=== PATIENT | male | born 1965 | race Caucasian/White ===

== ENCOUNTER 2024-03-13 10:55 | Observation (INO) ==
--- NOTE | 2024-03-13 11:55 | Emergency Department Note ---
History of Present Illness General Chief complaint: Infection Stated complaint: RT LEG EDMEMA/SEEPING FLUID, PAINFUL Time Seen by Provider: 03/13/24 11:40 Source: patient, RN notes reviewed and old records reviewed (The patient had a outpatient summary visit from her recent [facility] visit that I reviewed) Mode of arrival: ambulatory Limitations: no limitations History of Present Illness This patient is 59-year-old male who comes in after having right leg redness and swelling and weepiness. It has been going on for several days. Denies any fall or trauma. He denies history of this he is on a blood thinner and takes Eliquis for A-fib. No fever. No cough or respiratory symptoms. No other joint aches. no chest pain. No shortness of breath Home Medications Medication Instructions Recorded Confirmed Type apixaban 5 mg tablet (Eliquis) 5 mg PO BID 03/13/24 03/13/24 History atorvastatin 40 mg tablet 40 mg PO DAILY 03/13/24 03/13/24 History carbamazepine 200 mg tablet 250 mg PO TID 03/13/24 03/13/24 History clonidine HCl 0.1 mg tablet 0.1 mg PO TID 03/13/24 03/13/24 History divalproex 250 mg tablet,delayed 750 mg PO BID 03/13/24 03/13/24 History release hydrochlorothiazide 12.5 mg tablet 12.5 mg PO DAILY 03/13/24 03/13/24 History hydroxyzine HCl 50 mg tablet 50 mg PO QID PRN Anxiety 03/13/24 03/13/24 History lisinopril 40 mg tablet 40 mg PO DAILY 03/13/24 03/13/24 History metoprolol succinate 25 mg 25 mg PO DAILY 03/13/24 03/13/24 History tablet,extended release 24 hr olanzapine 10 mg tablet 10 mg PO HS 03/13/24 03/13/24 History paliperidone palmitate 234 mg/1.5 234 mg IM Q4WK 03/13/24 03/13/24 History mL intramuscular syringe (Invega Sustenna) quetiapine 100 mg tablet (Seroquel) 100 mg PO Q6H PRN Agitation 03/13/24 03/13/24 History risankizumab-rzaa 150 mg/mL 150 mg subcut UD 03/13/24 03/13/24 History subcutaneous syringe (Skyrizi) trazodone 150 mg tablet 75 mg PO HS 03/13/24 03/13/24 History triamcinolone acetonide 0.1 % 1 applic topical DAILY PRN flare 03/13/24 03/13/24 History topical cream Allergies Allergy/AdvReac Type Severity Reaction Status Date / Time latex Allergy Severe Burning Unverified 03/13/24 16:36 Rash Latex, Natural Rubber Allergy Severe Burning Unverified 03/13/24 16:36 Rash tamsulosin Allergy Rash Unverified 03/13/24 16:43 warfarin AdvReac Unknown Verified 03/13/24 16:36 Past Med/Surg History Problem List (Updated 03/13/24 @ 17:41 by Obie Haddad MD) Current use of ad terminal makeup operator anticoagulation (Acute) History of traumatic brain injury Tobacco use PAF (paroxysmal atrial fibrillation) (Acute) COPD (chronic obstructive pulmonary disease) Seizure disorder Prediabetes HLD (hyperlipidemia) HTN (hypertension) (Acute) Cellulitis of right lower extremity (Acute) Social History Smoking Status: Current every day smoker Tobacco Type: Cigarettes Preferred Language: Ecuadorean Feels Safe at Home: Yes Immunizations: Past medical historyhe does have mental health issues. He also has a history of A-fib. Review of Systems A total of 10 systems reviewed and were otherwise negative Physical Exam Vital Signs Vital Signs - 24 hr 03/13/24 10:56 03/13/24 12:11 03/13/24 12:11 Temperature 36.6 C Temperature Source Temporal Artery Scan Pulse Rate 78 73 Pulse Rate [Apical] 70 Pulse Rhythm [Apical] Pulse Strength [Apical] Respiratory Rate 18 24 19 Respiratory Effort / Characteristics Respiratory Depth Respiratory Pattern Blood Pressure 135/80 Blood Pressure [Right Arm] 136/92 Blood Pressure Mean 98 Blood Pressure Mean [Right Arm] 106 Blood Pressure Position [Right Arm] Pulse Oximetry 97 97 97 Oxygen Delivery Method Room Air Room Air Sepsis Recent Fever Within 48 Hours No Sepsis New/Unexplained Change in Mental Status N/A Sepsis Action Taken by Nursing No Action Required 03/13/24 12:37 03/13/24 13:35 03/13/24 15:40 Temperature Temperature Source Pulse Rate 72 Pulse Rate [Apical] 67 72 Pulse Rhythm [Apical] Regular Pulse Strength [Apical] Normal Respiratory Rate 22 22 Respiratory Effort / Characteristics Non-Labored Spontaneous Non-Labored Spontaneous Respiratory Depth Normal Normal Respiratory Pattern Regular Blood Pressure Blood Pressure [Right Arm] 141/82 H 138/93 Blood Pressure Mean Blood Pressure Mean [Right Arm] 101 108 Blood Pressure Position [Right Arm] Sitting Pulse Oximetry 94 97 Oxygen Delivery Method Room Air Room Air Sepsis Recent Fever Within 48 Hours Sepsis New/Unexplained Change in Mental Status Sepsis Action Taken by Nursing 03/13/24 16:53 Temperature Temperature Source Pulse Rate 66 Pulse Rate [Apical] Pulse Rhythm [Apical] Pulse Strength [Apical] Respiratory Rate Respiratory Effort / Characteristics Respiratory Depth Respiratory Pattern Blood Pressure Blood Pressure [Right Arm] Blood Pressure Mean Blood Pressure Mean [Right Arm] Blood Pressure Position [Right Arm] Pulse Oximetry Oxygen Delivery Method Sepsis Recent Fever Within 48 Hours Sepsis New/Unexplained Change in Mental Status Sepsis Action Taken by Nursing General: Well developed well nourished older male who in no acute distress, breathing comfortably on room air. Normal speech HEENT: Normal cephalic atraumatic. Pupils are equal round and reactive to light. Extraocular movements are intact. Oropharynx is pink with moist mucous membranes. No swelling of the mouth lips or tongue. Neck: Supple with a midline trachea. No meningeal signs or stiffness, no JVD or bruits. No Stridor. Chest: Clear to auscultation bilaterally. No wheezes or rhonchi. No increased work of breathing. Heart: Regular rate and rhythm without murmurs or gallops. Abdomen: Soft nontender, nondistended without rebound guarding or rigidity. Extremities: His right leg is red and swollen all the way up to the knee. There is skin breakdown and clear seeping. He does have distal pulses and good capillary refill. Spine/Back. Non tender to palpation. No CVA tenderness Skin: Good turgor without rashes. Neurologic exam: Cranial nerves two through 12 are intact. Motor and sensation are intact and symmetrical throughout. Course Administered Medications Daptomycin 425 mg/ Syringe 8.5 mls @ 4.25 mls/min IV Q24H [facility]; Protocol Stop: 03/20/24 16:29 Last Admin: 03/13/24 16:37 Dose: 4.25 mls/min Documented By: [facility] Nicotine (Nicotine 21 Mg/24 Hr Tdsy) 1 patch TD QAM MELONIE Stop: 04/12/24 15:44 Last Admin: 03/13/24 16:28 Dose: 1 patch Documented By: JONATHAN Discontinued Medications Ceftriaxone Sodium (Rocephin) 2,000 mg in 50 mls @ 100 mls/hr IV NOW STA Stop: 03/13/24 12:30 Last Infusion: 03/13/24 13:07 Dose: Infused Documented By: Admin: 03/13/24 12:28 Dose: 100 mls/hr Documented By: HERLINDA Magnesium Sulfate/Dextrose (Magnesium Sulfate / D5w) 1 gm in 100 mls @ 50 mls/hr IV ONE ONE Stop: 03/13/24 14:54 Last Infusion: 03/13/24 15:26 Dose: Infused Documented By: Admin: 03/13/24 13:17 Dose: 50 mls/hr Documented By: HERLINDA Medical Decision Making Differential Diagnosis Cellulitis, sepsis, DVT, arterial compromise, electrolyte or metabolic abnormality, toxicologic or medication side effect, mental health disorder Medical Records Attestation: I reviewed the patient's medical records. Home Medications Current Medication List: was personally reviewed by me Laboratory Data Attestation: I reviewed the patient's lab results. 03/13/24 11:36 03/13/24 11:36 Lab Results 03/13/24 03/13/24 03/13/24 Range/Units 11:36 11:58 15:41 WBC 9.70 (4.8-10.8) K/ul RBC 4.06 L (4.70-6.10) M/uL Hgb 13.8 L (14.0-18.0) g/dl Hct 38.8 L (42.0-52.0) % MCV 95.6 (80.0-100.0) fL MCH 34.0 (25.0-34.0) pg MCHC 35.6 (32.0-36.0) g/dL RDW Std Deviation 48.3 H (36.4-46.3) fL RDW Coeff of Alexander 13.5 (11.5-14.5) % Plt Count 189 (130-400) K/uL MPV 10.0 (9.4-12.4) fL Immature Gran % (Auto) 2.3 % Neut % (Auto) 62.2 % Lymph % (Auto) 19.6 % Hughes % (Auto) 14.9 % Eos % (Auto) 0.4 % Baso % (Auto) 0.6 % Neut # (Auto) 6.03 (1.40-6.50) K/uL Lymph # (Auto) 1.90 (1.20-3.40) K/uL Hughes # (Auto) 1.45 H (0.11-0.59) K/uL Eos # (Auto) 0.04 (0.00-0.50) K/uL Baso # (Auto) 0.06 (0.00-0.20) K/uL Immature Gran # (Auto) 0.22 H (0.01-0.20) K/uL Sodium 137 (136-145) mmol/L Potassium 4.0 (3.5-5.1) mmol/L Chloride 97 L (98-107) mmol/L Carbon Dioxide 35 H (21-32) mmol/L Anion Gap 5 (3-11) BUN 16 (6-23) mg/dl Creatinine 0.74 (0.6-1.4) mg/dl Est Cr Clr Drug Dosing 158.5 ml/min eGFR 103.73 BUN/Creatinine Ratio 21.6 H (10-20) Glucose 103 H (70-99(Fasting)) mg/dl Lactate 1.5 (0.4-2.0) mmol/L Calcium 9.5 (8.6-10.3) mg/dl Magnesium 1.5 L (1.7-2.4) mg/dl Total Bilirubin 0.8 (0.2-1.0) mg/dl AST 16 (13-39) U/L ALT 11 (7-52) U/L Alkaline Phosphatase 75 (34-104) U/L Troponin I High Sens 4.9 (0-20) pg/ml Total Protein 6.7 (6.0-8.3) gm/dl Albumin 3.5 (3.4-5.0) gm/dl Globulin 3.2 (2.5-4.0) gm/dl Albumin/Globulin Ratio 1.1 (0.9-2) Procalcitonin 0.16 (0-0.5) ng/ml Nasal Screen MRSA (PCR) Negative (Negative) Imaging Data Attestation: I personally reviewed and interpreted this imaging study as follows: My Impression: Chest x-raycardiomegaly but no acute infiltrate, failure, pneumothorax seen Radiologist's Impression: Venous Doppler Study 03/13/24 11:50 US venous doppler LE RT HISTORY: 59 years-old Male eval for dvt acute pain and swelling of the right lower leg COMPARISON: None TECHNIQUE: Multiple real-time sonographic images of the right lower extremity deep venous structures were obtained assessing grayscale appearance, color and spectral flow. FINDINGS: Normal flow, compressibility, phasicity and augmentation. Subcutaneous edema. Likely benign right inguinal lymphadenopathy with normal central fatty hetal. These measure up to 1 cm in short axis. IMPRESSION: No sonographic evidence of deep venous thrombosis. ACT 112: Negative or not required by law. The above report was generated using voice recognition software. It may contain grammatical, syntax or spelling errors. Electronically signed by: Behzad Carl M.D. 03/13/2024 2:53 PM Chest X-Ray 03/13/24 11:51 XR chest 1V portable HISTORY: 59 years-old Male Sepsis COMPARISON: None TECHNIQUE: AP view of the chest FINDINGS: Cardiac silhouette is enlarged. Electronic device projects over the left heart border. Mild interstitial coarsening of the lung bases is likely chronic. No pneumothorax, pleural effusion or airspace consolidation. Numerous chronic left- sided rib fractures. Degenerative changes of the shoulders and spine. IMPRESSION: Cardiomegaly without acute process. ACT 112: Negative or not required by law. The above report was generated using voice recognition software. It may contain grammatical, syntax or spelling errors. Electronically signed by: Behzad Carl M.D. 03/13/2024 12:37 PM ECG Data Attestation: I personally reviewed and interpreted this ECG as follows: Indication: + weakness Rate (beats per minute): 73 Rhythm: + normal sinus ECG Intervals/blocks: + Normal QRS, + Normal QT and + Normal MT ECG Frost: + Normal ECG ST segments: + Normal ST segments ECG Findings: no PACs or no PVCs Comparison ECG Date: no prior available MDM Narrative This patient comes in as described above. His right leg is red and swollen and weepy. It appears to be consistent with cellulitis. he does not appear to have any neurovascular compromise. I did order ultrasound to make sure it is not a blood clot related. IV access was established and blood testing was obtained . He was placed on a cardiac nurse practitioner and full sepsis type workup. His inflammatory markers with white count and lactic acid were not scantly elevated. Ultrasound shows no evidence of DVT. He is magnesium was low and was given IV magnesium otherwise he has no significant electrolyte or metabolic abnormalities. EKG shows no ischemic changes. Given his extensive cellulitis, I do think he needs to be admitted/observed for IV antibiotics and further treatment and evaluation. I have discussed the case at length with the [facility] in consultation and the patient will be admitted for further inpatient treatment and evaluation Continuous cardiac monitoring: Upon my evaluation patient noted to be in normal sinus rhythm rate of 67 Impression & Plan Cellulitis of right lower extremity, PAF (paroxysmal atrial fibrillation), Current use of ad terminal makeup operator anticoagulation, HTN (hypertension) Discharge Plan Visit Data Chief Complaint: Infection Stated Complaint: RT LEG EDMEMA/SEEPING FLUID, PAINFUL ED Provider: Obie Haddad Discharge Problem: Cellulitis of right lower extremity, PAF (paroxysmal atrial fibrillation), Current use of ad terminal makeup operator anticoagulation, HTN (hypertension) Forms Stand Alone Forms: My [facility] Prescriptions Prescriptions: No Action atorvastatin 40 mg Tablet 40 mg PO DAILY Eliquis 5 mg Tablet 5 mg PO BID olanzapine 10 mg Tablet 10 mg PO HS triamcinolone acetonide 0.1 % Cream 1 applic TOPICAL DAILY PRN (Reason: flare) clonidine HCl 0.1 mg Tablet 0.1 mg PO TID divalproex 250 mg Tablet,Delayed Release (Dr/Ec) 750 mg PO BID hydroxyzine HCl 50 mg Tablet 50 mg PO QID PRN (Reason: Anxiety) carbamazepine 200 mg Tablet 250 mg PO TID trazodone 150 mg Tablet 75 mg PO HS metoprolol succinate 25 mg Tablet Extended Release 24 Hr 25 mg PO DAILY lisinopril 40 mg Tablet 40 mg PO DAILY hydrochlorothiazide 12.5 mg Tablet 12.5 mg PO DAILY Invega Sustenna 234 mg/1.5 mL Syringe 234 mg IM Q4WK Rx Instructions: Has not been filled per [facility] pharmacy Skyrizi 150 mg/mL Syringe 150 mg SUBCUT UD Rx Instructions: Q12wks quetiapine [Seroquel] 100 mg Tablet 100 mg PO Q6H PRN (Reason: Agitation) Referrals Referrals: PCP,NO [Primary Care Provider] - Discharge Problem: HTN (hypertension) Qualifiers: Hypertension type: unspecified Qualified Code(s): I10 - Essential (primary) hypertension
[2024-03-13 11:56] LABS: Basophils # (auto) 0.06 K/uL (0.00-0.20); Basophils % (auto) 0.6 %; Eosinophils # (auto) 0.04 K/uL (0.00-0.50); Eosinophils % (auto) 0.4 %; Hematocrit (blood only) 38.8 % (42.0-52.0); Hemoglobin 13.8 g/dl (14.0-18.0); Immature Granulocytes # (auto) 0.22 K/uL (0.01-0.20); Immature Granulocytes % (auto) 2.3 %; Lymphocytes % (auto) 19.6 %; Mean Corpuscular Hgb Conc 35.6 g/dL (32.0-36.0); Mean Corpuscular Volume 95.6 fL (80.0-100.0); Monocytes # (auto) 1.45 K/uL (0.11-0.59); Monocytes % (auto) 14.9 %; Neutrophils # (auto) 6.03 K/uL (1.40-6.50); Neutrophils % (auto) 62.2 %; Platelet Count 189 K/uL (130-400); RDW Coefficient of Variation 13.5 % (11.5-14.5); RDW Standard Deviation 48.3 fL (36.4-46.3); Red Blood Count 4.06 M/uL (4.70-6.10)
[2024-03-13 12:10] LABS: Albumin Globulin Ratio 1.1 (0.9-2); Albumin Level 3.5 gm/dl (3.4-5.0); BUN Creatinine Ratio 21.6 (10-20); Bilirubin,Total 0.8 mg/dl (0.2-1.0); Calcium 9.5 mg/dl (8.6-10.3); Creatinine Clr Calc Pharmacy 158.5 ml/min; Globulin 3.2 gm/dl (2.5-4.0); Total Protein 6.7 gm/dl (6.0-8.3)
[2024-03-13] MEDS: cefTRIAXone SODIUM 2,000 MG/50 ML BAG IV STA (12:28)
[2024-03-13 12:34] LABS: Magnesium 1.5 mg/dl (1.7-2.4)
[2024-03-13 12:39] LABS: Troponin I High Sensitivity 4.9 pg/ml (0-20)
--- NOTE | 2024-03-13 12:39 | XRay Report ---
XR chest 1V portable HISTORY: 59 years-old Male Sepsis COMPARISON: None TECHNIQUE: AP view of the chest FINDINGS: Cardiac silhouette is enlarged. Electronic device projects over the left heart border. Mild interstit ial coarsening of the lung bases is likely chronic. No pneumothorax, pleural effusion or airspace con solidation. Numerous chronic left-sided rib fractures. Degenerative changes of the shoulders and spin e. IMPRESSION: Cardiomegaly without acute process. ACT 112: Negative or not required by law. The above report was generated using voice recognition software. It may contain grammatical, syntax o r spelling errors. Electronically signed by: Behzad Carl M.D. 03/13/2024 12:37 PM
[2024-03-13] MEDS: MAGNESIUM SULFATE / D5W 1 GM/100 ML BAG IV ONE (13:17)
--- NOTE | 2024-03-13 14:54 | Ultrasound Report ---
US venous doppler LE RT HISTORY: 59 years-old Male eval for dvt acute pain and swelling of the right lower leg COMPARISON: None TECHNIQUE: Multiple real-time sonographic images of the right lower extremity deep venous structures were obtained assessing grayscale appearance, color and spectral flow. FINDINGS: Normal flow, compressibility, phasicity and augmentation. Subcutaneous edema. Likely benign right ing uinal lymphadenopathy with normal central fatty hetal. These measure up to 1 cm in short axis. IMPRESSION: No sonographic evidence of deep venous thrombosis. ACT 112: Negative or not required by law. The above report was generated using voice recognition software. It may contain grammatical, syntax o r spelling errors. Electronically signed by: Behzad Carl M.D. 03/13/2024 2:53 PM
[2024-03-13] MEDS ORDERED: VANCOMYCIN CONSULT ACTIVE PRN ×2 (15:55→18:19)
[2024-03-13] MEDS ORDERED: VANCOMYCIN HCL 2,750 MG in DEXTROSE 5% 500 ML IV ONE (15:55)
--- NOTE | 2024-03-13 15:55 | History & Physical Report ---
Date of Service March 13, 2024 Assessment & Plan (1) Cellulitis of right lower extremity: Plan: Patient is 59-year-old male with PMH HTN, HLD, paroxysmal atrial fibrillation anticoagulated on Eliquis, prediabetes, seizure disorder, COPD, tobacco use, hemochromatosis, history TBI, schizophrenia, schizoaffective disorder, bipolar disorder, psoriasis per records presented to ER for RLE edema and erythema x several days. Denies known injury. Reported applied skin peeling agent to bilateral arms and legs recently. In ER patient afebrile, vital stable without tachycardia, tachypnea. No leukocytosis. Normal lactate In ER given Rocephin Patient reports thinks has history of MRSA from nasal swab in past Will start cefepime and daptomycin MRSA swab pending Venous Doppler negative for DVT CBC, BMP in a.m. (2) HTN (hypertension): Plan: Stable Continue lisinopril, HCTZ Per outpatient PCP note amlodipine was discontinued secondary to LE edema (3) HLD (hyperlipidemia): Plan: Hold atorvastatin as is on daptomycin (4) Prediabetes: Plan: A1c: 5.8 on 01/02/2024 Diet controlled Random glucose: 103 Monitor a.m. glucose (5) PAF (paroxysmal atrial fibrillation): Plan: Anticoagulated on Eliquis Continue metoprolol succinate Will hold Eliquis as contraindication with carbamazepine Will need to further clarify patients history (6) COPD (chronic obstructive pulmonary disease): Plan: No signs of acute exacerbation Albuterol prn (7) Schizophrenia: Plan: Per outpatient records history paranoid schizophrenia, schizoaffective and bipolar disorder Continue carbamazepine, Depakote, olanzapine, clonidine Per records is on Invega injections, unclear if patient still taking or when last dose was (8) History of traumatic brain injury: (9) Seizure disorder: Plan: On Depakote Denies recent seizure (10) Tobacco use: Plan: Smoking cessation encouraged Nicotine patch DVT Prophylaxis On Eliquis Admit med surg Full Code as per discussion with pt Follows with Dr Beltran for routine care Pt was seen and care coordinated with Dr Hyman. See addendum I spent a total of 75 minutes reviewing notes, outpatient records, labs, medication, coordinating, documenting and providing care for this patient excluding time spent in the performance of separately billed services. History of Present Illness Chief Complaint: Right leg swelling Primary Care Provider: Dr Sergo Beltran Patient is 59-year-old male with PMH HTN, HLD, paroxysmal atrial fibrillation anticoagulated on Eliquis, prediabetes, seizure disorder, COPD, tobacco use, hemochromatosis, history TBI, schizophrenia, schizoaffective disorder, bipolar disorder, psoriasis per records presented to ER for RLE edema and erythema x several days. Patient reports is currently residing at [facility]. Reports moved to area approximately 5 months ago from [place], [place]. Patient reports chronic skin discoloration to lower legs. He reports cannot tolerate compression hose. States for the last several days noted increased swelling and redness to right lower leg which has worsened. Several days ago noticed some clear yellow fluid seeping from right lower leg. He reports history right ankle fracture approximately 12 years ago. Denies any recent injury or trauma to leg. It is unclear if patient has had any chills as when asked he "states yes somebody asked me that question already". Thinks history positive MRSA nasal swab in past. Denies known history of DVT or cellulitis however patient is poor historian. When asked patient denies history of psoriasis however per chart review psoriasis is listed as a diagnosis and appears patient has been on Skyrizi in past. Is unclear if patient is still taking this. Patient reports he put some type of "skin peeling cream" to bilateral arms and legs recently. States noted skin has been peeling. He reports has done this in the past and usually follows up treatment by applying moisturizer however he did not this time. Denies diaphoresis, N/V/D/C, HELMS, dizziness, neck pain, CP, SOB, palpitations, cough, sore throat, rhinorrhea, abdominal pain, paresthesias, extremity weakness, urinary symptoms. Allergies Allergy/AdvReac Type Severity Reaction Status Date / Time latex Allergy Severe Burning Unverified 03/13/24 16:36 Rash Latex, Natural Rubber Allergy Severe Burning Unverified 03/13/24 16:36 Rash tamsulosin Allergy Rash Unverified 03/13/24 16:43 warfarin AdvReac Unknown Verified 03/13/24 16:36 Home Medications Medication Instructions Recorded Confirmed Type apixaban 5 mg tablet (Eliquis) 5 mg PO BID 03/13/24 03/13/24 History atorvastatin 40 mg tablet 40 mg PO DAILY 03/13/24 03/13/24 History carbamazepine 200 mg tablet 250 mg PO TID 03/13/24 03/13/24 History clonidine HCl 0.1 mg tablet 0.1 mg PO TID 03/13/24 03/13/24 History divalproex 250 mg tablet,delayed 750 mg PO BID 03/13/24 03/13/24 History release hydrochlorothiazide 12.5 mg tablet 12.5 mg PO DAILY 03/13/24 03/13/24 History hydroxyzine HCl 50 mg tablet 50 mg PO QID PRN Anxiety 03/13/24 03/13/24 History lisinopril 40 mg tablet 40 mg PO DAILY 03/13/24 03/13/24 History metoprolol succinate 25 mg 25 mg PO DAILY 03/13/24 03/13/24 History tablet,extended release 24 hr olanzapine 10 mg tablet 10 mg PO HS 03/13/24 03/13/24 History paliperidone palmitate 234 mg/1.5 234 mg IM Q4WK 03/13/24 03/13/24 History mL intramuscular syringe (Invega Sustenna) quetiapine 100 mg tablet (Seroquel) 100 mg PO Q6H PRN Agitation 03/13/24 03/13/24 History risankizumab-rzaa 150 mg/mL 150 mg subcut UD 03/13/24 03/13/24 History subcutaneous syringe (Melvinayrizi) trazodone 150 mg tablet 75 mg PO HS 03/13/24 03/13/24 History triamcinolone acetonide 0.1 % 1 applic topical DAILY PRN flare 03/13/24 03/13/24 History topical cream Past Med/Surg History Problem List Current use of group home anticoagulation (Acute) History of traumatic brain injury Tobacco use PAF (paroxysmal atrial fibrillation) (Acute) COPD (chronic obstructive pulmonary disease) Seizure disorder Prediabetes HLD (hyperlipidemia) HTN (hypertension) (Acute) Cellulitis of right lower extremity (Acute) Surgical History Hx of tonsillectomy H/O foot surgery reports history Left foot fracture Family History Other Diabetes Dyslipidemia Hypertension Social History Smoking Status: Current every day smoker Tobacco Type: Cigarettes Cigarettes Per Day: 3/4 pack a day; Hx Alcohol Use: No Hx Substance Use: No Preferred Language: Lithuanian Communication Ability: Effective Soaking Room Operator Required: No Beliefs That Will Affect Care: None Current Living Situation: [facility] Feels Safe at Home: Yes Assistive Devices: None Review of Systems Review of Systems: All systems reviewed & are unremarkable except as noted in HPI & below Physical Exam Physical Exam: General: no distress, obese Head: normocephalic, atraumatic Eyes: conjunctiva non-injected, anicteric ENT: normal inspection external ears, nose, mucous membranes moist Neck: supple, trachea midline Lungs: clear, no respiratory distress, scattered wheezing, no rhonchi/rales CV: RRR, no murmur Abd: normal BS, soft, non-tender Ext: RLE: +erythema, warmth and edema to entire lower leg from just below knee to toes, +bullous regions and scattered clear/yellow seeping. Area tender to palpation. Foot is soiled. LLE + skin discoloration noted lower extremity. +erythematous scaling skin to bilateral arms and legs Neuro: A&O x 3, no focal deficits noted, tangential thoughts Skin: as above in extremities, warm, dry Results & Data Results & Data Vital Signs (Past 12 Hours) Vital Signs Temp Pulse Pulse Resp BP BP Pulse Ox 03/13/24 13:35 67 22 141/82 H 94 03/13/24 12:37 72 03/13/24 12:11 73 19 97 03/13/24 12:11 70 24 136/92 97 03/13/24 10:56 36.6 C 78 18 135/80 97 O2 Del Method 03/13/24 13:35 Room Air 03/13/24 12:37 03/13/24 12:11 Room Air 03/13/24 12:11 Room Air 03/13/24 10:56 Laboratory Results Short CBC 03/13/24 Range/Units 11:36 WBC 9.70 (4.8-10.8) K/ul Hgb 13.8 L (14.0-18.0) g/dl Hct 38.8 L (42.0-52.0) % Plt Count 189 (130-400) K/uL BMP 03/13/24 11:36 Sodium 137 Potassium 4.0 Chloride 97 L Carbon Dioxide 35 H BUN 16 Creatinine 0.74 Glucose 103 H Calcium 9.5 Liver Function 03/13/24 Range/Units 11:36 Total Bilirubin 0.8 (0.2-1.0) mg/dl AST 16 (13-39) U/L ALT 11 (7-52) U/L Alkaline Phosphatase 75 (34-104) U/L Albumin 3.5 (3.4-5.0) gm/dl Diagnostic Findings Venous Doppler Study 03/13/24 11:50 US venous doppler LE RT HISTORY: 59 years-old Male eval for dvt acute pain and swelling of the right lower leg COMPARISON: None TECHNIQUE: Multiple real-time sonographic images of the right lower extremity deep venous structures were obtained assessing grayscale appearance, color and spectral flow. FINDINGS: Normal flow, compressibility, phasicity and augmentation. Subcutaneous edema. Likely benign right inguinal lymphadenopathy with normal central fatty hetal. These measure up to 1 cm in short axis. IMPRESSION: No sonographic evidence of deep venous thrombosis. ACT 112: Negative or not required by law. The above report was generated using voice recognition software. It may contain grammatical, syntax or spelling errors. Electronically signed by: Behzad Carl M.D. 03/13/2024 2:53 PM Chest X-Ray 03/13/24 11:51 XR chest 1V portable HISTORY: 59 years-old Male Sepsis COMPARISON: None TECHNIQUE: AP view of the chest FINDINGS: Cardiac silhouette is enlarged. Electronic device projects over the left heart border. Mild interstitial coarsening of the lung bases is likely chronic. No pneumothorax, pleural effusion or airspace consolidation. Numerous chronic left- sided rib fractures. Degenerative changes of the shoulders and spine. IMPRESSION: Cardiomegaly without acute process. ACT 112: Negative or not required by law. The above report was generated using voice recognition software. It may contain grammatical, syntax or spelling errors. Electronically signed by: Behzad Carl M.D. 03/13/2024 12:37 PM Code Status & VTE Plan VTE Prophylaxis Plan VTE Prophylaxis will be ordered: Yes Supervising Physician Co-Signing Physician Notes Attending Addendum: Case reviewed with the advanced practitioner. I have personally performed a history and physical examination on the patient. I have reviewed the advanced practitioner's documentation on the date of service referenced in note, and I agree with, and take responsibility for the plan of care. please refer to her notes for full details patient seen and examined, records reviewed by myself as well on exam, patient Seen resting in bed, not in distress, watching TV Reports moderate pain over right lower extremity, worse with ambulation No other symptoms reported VS noted and reviewed: oriented X 3, not in distress, speaks in sentences with no effort nor accessory muscle use normal rate, regular rhythm, no murmurs clear breath sounds bilaterally non distended, soft, nontender no bipedal edema, erythema, warmth no neuro deficits all labs, imaging noted and reviewed ASSESSMENT AND PLAN> Right lower extremity cellulitis Doppler ultrasound: No DVT Blood cultures ordered Wound culture ordered IV Daptomycin + Cefepime other diagnoses and plan of care as per advanced practitioner's notes Jared Hyman MD (7) Schizophrenia Schizophrenia type: unspecified Qualified Code(s): F20.9 - Schizophrenia, unspecified
[2024-03-13] MEDS: NICOTINE 21 MG/24 HR TDSY TD SCH (16:28)
[2024-03-13] MEDS: DAPTOmycin 425 MG in SYRINGE 0 ML IV SCH (16:37)
[2024-03-13] MEDS ORDERED: ALBUTEROL 0.083% NEBU SOLN 3 ML VIAL NEB PRN (18:19)
[2024-03-13] MEDS ORDERED: POLYETHYLENE (MIRALAX) 17 GM PACK PO PRN (18:19)
[2024-03-13] MEDS ORDERED: VANCOMYCIN HCL 1,500 MG in DEXTROSE 5% 500 ML IV SCH (18:19)
[2024-03-13] MEDS: CEFEPIME 2000MG 2,000 MG/20 ML SYR IV SCH (20:59)
[2024-03-13] MEDS: ENOXAPARIN INJ 40 MG/0.4 ML SYR SQ SCH (20:59)
[2024-03-13] MEDS ORDERED: APIXABAN 5 MG TABLET PO SCH (21:00)
[2024-03-13] MEDS: carBAMazepine 100 MG CHEW TAB PO SCH (21:00)
[2024-03-13] MEDS: OLANZapine 10 MG TAB PO SCH (21:01)
[2024-03-13] MEDS: DIVALPROEX DELAY RELEASE 250 MG TABEC PO SCH (21:01)
[2024-03-13] MEDS: traZODone HCL 50 MG TAB PO SCH (21:02)
[2024-03-13] MEDS: cloNIDine HCL 0.1 MG TAB PO SCH (21:02)
[2024-03-14] MEDS: ACETAMINOPHEN 325 MG TAB PO PRN (01:06)
[2024-03-14 06:12] LABS: Hematocrit (blood only) 35.3 % (42.0-52.0); Hemoglobin 12.1 g/dl (14.0-18.0); Mean Corpuscular Hemoglobin 33.4 pg (25.0-34.0); Mean Corpuscular Hgb Conc 34.3 g/dL (32.0-36.0); Mean Corpuscular Volume 97.5 fL (80.0-100.0); Mean Platelet Volume 9.9 fL (9.4-12.4); Platelet Count 171 K/uL (130-400); RDW Coefficient of Variation 13.7 % (11.5-14.5); Red Blood Count 3.62 M/uL (4.70-6.10); White Blood Count 7.48 K/ul (4.8-10.8)
[2024-03-14 06:35] LABS: Calcium 8.7 mg/dl (8.6-10.3); Creatinine Clr Calc Pharmacy 143.1 ml/min; Magnesium 1.6 mg/dl (1.7-2.4); Potassium 4.5 mmol/L (3.5-5.1)
[2024-03-14] MEDS: METOPROLOL SUCC 25MG EXT REL TAB PO SCH (08:32)
[2024-03-14] MEDS: hydroCHLOROthiazide 25 MG TAB PO SCH (08:32)
[2024-03-14] MEDS: lisinopril 40 MG TAB PO SCH (08:32)
[2024-03-14] MEDS: oxyCODONE HCL IR 5 MG TAB (IMMEDIATE RELEASE) PO STA (09:35)
--- NOTE | 2024-03-14 11:02 | Hospitalist Progress Note ---
Date of Service March 14, 2024 Assessment & Plan (1) Cellulitis of right lower extremity: (2) HTN (hypertension): (3) HLD (hyperlipidemia): (4) Prediabetes: (5) PAF (paroxysmal atrial fibrillation): (6) COPD (chronic obstructive pulmonary disease): (7) History of traumatic brain injury: (8) Seizure disorder: (9) Tobacco use: Plan Mr. Guillory is 59-year-old male with PMH HTN, HLD, paroxysmal atrial fibrillation anticoagulated on Eliquis, prediabetes, seizure disorder, COPD, tobacco use, hemochromatosis, history TBI, schizophrenia, schizoaffective disorder, bipolar disorder, psoriasis per records presented to ER for RLE edema and erythema x several days. Patient has followed Dr. Sergo Beltran as OP. Has a history of TBI at age 15 and multiple psychiatric disorders including schizoaffective disorder, bipolar disorder, schizophrenia. His current medications from a psychiatric perspective include Tegretol 250 mg 3 times daily, clonidine 0.1 mg 3 times daily, Depakote 750 mg twice daily, Seroquel 100 mg as needed, Invega Sustenna 234 mg once monthly. He reports symptoms are largely stable. He does have a history of atrial fibrillation currently anticoagulated on Eliquis. Seemingly diagnosed in 2017 or 2018. #Acute Cellulitis of right lower extremity: #Stasis dermatitis of BLE In ER patient afebrile, vital stable without tachycardia, tachypnea. No leukocytosis. Normal lactate MRSA negative, doppler negative Continue additional day of IV antibiotics, while swab grows (superficial culture) AmLactin to LLE #HTN (hypertension): Stable Follows Dr. Sergo Beltran Recently increased lisinopril to 40mg daily 02/20, continue Continue HCTZ and Metoprolol XL 25mg daily #HLD (hyperlipidemia): Hold atorvastatin as is on daptomycin #Prediabetes: A1c: 5.8 on 01/02/2024 Diet controlled Random glucose: 103 stable #PAF (paroxysmal atrial fibrillation): Anticoagulated on Eliquis, has been on eliquis since 2018 after reported ?stroke/lacunar infarct after hospitalization Continue metoprolol succinate #Post traumatic epilespy #History of TBI last documented seizure reportedly 2016, no documentation or reports of other seizures Followed neurology 2021 Continue on Depakote 750mg BID for convulsions #COPD (chronic obstructive pulmonary disease): No signs of acute exacerbation Albuterol prn #Schizophrenia: Per outpatient records history paranoid schizophrenia, schizoaffective and bipolar disorder Continue carbamazepine, Depakote, olanzapine, clonidine Per records is on Invega injections, unclear if patient still taking or when last dose was #Tobacco use: Smoking cessation encouraged Nicotine patch DVT Prophylaxis On Eliquis med surg Full Code Follows with Dr Beltran for routine care Admission and Anticipated Discharge Date Admission Date: March 13, 2024 Subjective NAEO Reports some modest improvement in RLE pain/cellulitis Denies any fevers chills or other systemic symptoms Physical Exam Constitutional: WD/WN, vitals as above a little tangential and poor historian, but able to redirect and agree to plan Respiratory: normal respiratory effort, lungs clear to auscultation Cardiovascular: RRR Skin: LLE with dry skin and subtle stasis changes, RLE with erythema up to knee, small areas of blistering, pedal edema, and tenderness Results & Data Results & Data Vital Signs (Past 12 Hours) Vital Signs Temp Pulse Resp BP Pulse Ox O2 Del Method 03/14/24 09:40 Room Air 03/14/24 08:32 36.4 C L 88 17 154/90 H 95 Room Air Laboratory Results Short CBC 03/14/24 Range/Units 05:31 WBC 7.48 (4.8-10.8) K/ul Hgb 12.1 L (14.0-18.0) g/dl Hct 35.3 L (42.0-52.0) % Plt Count 171 (130-400) K/uL BMP 03/14/24 05:31 Sodium 136 Potassium 4.5 Chloride 98 Carbon Dioxide 34 H BUN 18 Creatinine 0.82 Glucose 129 H Calcium 8.7 Medications Administered Home Medications Medication Instructions Recorded Confirmed Last Taken apixaban 5 mg tablet (Eliquis) 5 mg PO BID 03/13/24 03/13/24 03/13/24 atorvastatin 40 mg tablet 40 mg PO DAILY 03/13/24 03/13/24 Unknown carbamazepine 200 mg tablet 250 mg PO TID 03/13/24 03/13/24 Unknown clonidine HCl 0.1 mg tablet 0.1 mg PO TID 03/13/24 03/13/24 Unknown divalproex 250 mg tablet,delayed 750 mg PO BID 03/13/24 03/13/24 Unknown release hydrochlorothiazide 12.5 mg tablet 12.5 mg PO DAILY 03/13/24 03/13/24 Unknown hydroxyzine HCl 50 mg tablet 50 mg PO QID PRN Anxiety 03/13/24 03/13/24 Unknown lisinopril 40 mg tablet 40 mg PO DAILY 03/13/24 03/13/24 Unknown metoprolol succinate 25 mg 25 mg PO DAILY 03/13/24 03/13/24 Unknown tablet,extended release 24 hr olanzapine 10 mg tablet 10 mg PO HS 03/13/24 03/13/24 03/12/24 paliperidone palmitate 234 mg/1.5 234 mg IM Q4WK 03/13/24 03/13/24 Unknown mL intramuscular syringe (Invega Sustenna) quetiapine 100 mg tablet (Seroquel) 100 mg PO Q6H PRN Agitation 03/13/24 03/13/24 Unknown risankizumab-rzaa 150 mg/mL 150 mg subcut UD 03/13/24 03/13/24 Unknown subcutaneous syringe (Skyrizi) trazodone 150 mg tablet 75 mg PO HS 03/13/24 03/13/24 Unknown triamcinolone acetonide 0.1 % 1 applic topical DAILY PRN flare 03/13/24 03/13/24 Unknown topical cream Active Medications Generic Name Dose Route Start Last Admin Trade Name Freq PRN Reason Stop Dose Admin Acetaminophen 650 mg 03/13/24 18:19 03/14/24 01:06 Acetaminophen 325 Mg Tab PO 04/12/24 18:18 650 mg Q4H PRN Administration pain/fever Apixaban 5 mg 03/14/24 11:00 03/14/24 11:38 Apixaban 5 Mg Tablet PO 04/13/24 10:59 5 mg BID MELONIE Administration Carbamazepine 250 mg 03/13/24 21:00 03/14/24 14:27 Carbamazepine 100 Mg Chew Tab PO 04/12/24 20:59 250 mg TID MELONIE Administration Clonidine HCl 0.1 mg 03/13/24 21:00 03/14/24 14:27 Clonidine Hcl 0.1 Mg Tab PO 04/12/24 20:59 0.1 mg TID MELONIE Administration Divalproex Sodium 750 mg 03/13/24 21:00 03/14/24 08:32 Divalproex Delay Release 250 Mg Tabec PO 04/12/24 20:59 750 mg BID MELONIE Administration Hydrochlorothiazide 12.5 mg 03/14/24 09:00 03/14/24 08:32 Hydrochlorothiazide 25 Mg Tab PO 04/13/24 08:59 12.5 mg DAILY MELONIE Administration Daptomycin 425 mg/ Syringe 8.5 mls @ 4.25 mls/min 03/13/24 16:30 03/13/24 16:37 IV 03/20/24 16:29 4.25 mls/min Q24H MELONIE Administration Protocol Cefepime HCl 2,000 mg in 20 mls @ 5 mls/min 03/13/24 19:00 03/14/24 11:30 Maxipime 2000mg IV 03/20/24 18:59 5 mls/min Q8H MELONIE Administration Protocol Lisinopril 40 mg 03/14/24 09:00 03/14/24 08:32 Lisinopril 40 Mg Tab PO 04/13/24 08:59 40 mg DAILY MELONIE Administration Magnesium Chloride 64 mg 03/14/24 11:00 03/14/24 11:38 Magnesium Chloride W/Calcium 64mg Delayed Rel Tab PO 04/13/24 10:59 64 mg QAM MELONIE Administration Metoprolol Succinate 25 mg 03/14/24 09:00 03/14/24 08:32 Metoprolol Succ 25mg Ext Rel Tab PO 04/13/24 08:59 25 mg DAILY MELONIE Administration Miscellaneous 1 each 03/14/24 08:59 03/14/24 09:03 Remove Nicoderm Patch N/A 04/13/24 08:58 Not Given [id number] MELONIE Nicotine 1 patch 03/13/24 15:45 03/14/24 09:03 Nicotine 21 Mg/24 Hr Tdsy TD 04/12/24 15:44 1 patch QAM MELONIE Administration Olanzapine 10 mg 03/13/24 21:00 03/13/24 21:01 Olanzapine 10 Mg Tab PO 04/12/24 20:59 10 mg HS MELONIE Administration Trazodone HCl 75 mg 03/13/24 21:00 03/13/24 21:02 Trazodone Hcl 50 Mg Tab PO 04/12/24 20:59 75 mg HS MELONIE Administration (2) HTN (hypertension) Hypertension type: unspecified Qualified Code(s): I10 - Essential (primary) hypertension
[2024-03-14] MEDS: MAGNESIUM CHLORIDE W/CALCIUM 64MG DELAYED REL TAB PO SCH (11:38)
[2024-03-14] MEDS: APIXABAN 5 MG TABLET PO SCH (11:38)
[2024-03-14] MEDS: COUGH DROP (SUGAR FREE) LOZ 24 LOZ/1 BOX BUCCAL ONE (16:45)
--- NOTE | 2024-03-14 19:08 | Electrocardiogram Report ---
Test Reason : Blood Pressure : */* mmHG Vent. Rate : 73 BPM Atrial Rate : 73 BPM P-R Int : 148 ms QRS Dur : 86 ms QT Int : 384 ms P-R-T Axes : 55 46 42 degrees QTcB Int : 423 ms Normal sinus rhythm Normal ECG No previous ECGs available Confirmed by Tita Patrick ([email or web address]) on 03/14/2024 7:08:26 PM Referred By: REFERRED SELF Confirmed By: Tita Patrick
[2024-03-14] MEDS: AMMONIUM LACTATE 12% LOTION 225 GM BTL EXT SCH (19:59)
[2024-03-15 07:53] LABS: Hematocrit (blood only) 37.8 % (42.0-52.0); Hemoglobin 13.1 g/dl (14.0-18.0); Mean Corpuscular Hemoglobin 32.8 pg (25.0-34.0); Mean Corpuscular Hgb Conc 34.7 g/dL (32.0-36.0); Mean Corpuscular Volume 94.5 fL (80.0-100.0); Mean Platelet Volume 9.8 fL (9.4-12.4); Platelet Count 206 K/uL (130-400); RDW Coefficient of Variation 13.3 % (11.5-14.5); RDW Standard Deviation 46.2 fL (36.4-46.3); White Blood Count 7.58 K/ul (4.8-10.8)
[2024-03-15 08:00] LABS: Anion Gap 5 (3-11); BUN Creatinine Ratio 27.1 (10-20); Blood Urea Nitrogen 19 mg/dl (6-23); Calcium 8.8 mg/dl (8.6-10.3); Carbon Dioxide 30 mmol/L (21-32); Chloride 95 mmol/L (98-107); Creatinine Clr Calc Pharmacy 167.6 ml/min; Glucose 111 mg/dl (70-99(Fasting)); Magnesium 1.6 mg/dl (1.7-2.4); Phosphorus 2.6 mg/dl (2.5-4.9); Sodium 130 mmol/L (136-145)
--- NOTE | 2024-03-15 11:32 | Hospitalist Progress Note ---
Date of Service March 15, 2024 Assessment & Plan (1) Cellulitis of right lower extremity: (2) HTN (hypertension): (3) HLD (hyperlipidemia): (4) Prediabetes: (5) PAF (paroxysmal atrial fibrillation): (6) COPD (chronic obstructive pulmonary disease): (7) History of traumatic brain injury: (8) Seizure disorder: (9) Tobacco use: Plan Mr. Guillory is 59-year-old male with PMH HTN, HLD, paroxysmal atrial fibrillation anticoagulated on Eliquis, prediabetes, seizure disorder, COPD, tobacco use, hemochromatosis, history TBI, schizophrenia, schizoaffective disorder, bipolar disorder, psoriasis per records presented to ER for RLE edema and erythema x several days. Patient has followed Dr. Sergo Beltran as OP. Has a history of TBI at age 15 and multiple psychiatric disorders including schizoaffective disorder, bipolar disorder, schizophrenia. His current medications from a psychiatric perspective include Tegretol 250 mg 3 times daily, clonidine 0.1 mg 3 times daily, Depakote 750 mg twice daily, Seroquel 100 mg as needed, Invega Sustenna 234 mg once monthly. He reports symptoms are largely stable. He does have a history of atrial fibrillation currently anticoagulated on Eliquis. Seemingly diagnosed in 2017 or 2018. Cultures with MSSA/strep dysgalactiae, will continue with dapto while inpatient for 1 more day given noted improvement but still sig. edema. #Acute Cellulitis of right lower extremity: #Stasis dermatitis of BLE In ER patient afebrile, vital stable without tachycardia, tachypnea. No leukocytosis. Normal lactate MRSA negative, doppler negative Continue additional day of IV antibiotics,narrow to dapto -Potential discharge on course of po agent AmLactin to BLE #HTN (hypertension): Stable Follows Dr. Sergo Beltran Recently increased lisinopril to 40mg daily 02/20, continue Continue HCTZ and Metoprolol XL 25mg daily #HLD (hyperlipidemia): Hold atorvastatin as is on daptomycin #Prediabetes: A1c: 5.8 on 01/02/2024 Diet controlled Random glucose: 103 stable #PAF (paroxysmal atrial fibrillation): Anticoagulated on Eliquis, has been on eliquis since 2018 after reported ?stroke/lacunar infarct after hospitalization Continue metoprolol succinate #Post traumatic epilespy #History of TBI last documented seizure reportedly 2016, no documentation or reports of other seizures Followed neurology 2021 Continue on Depakote 750mg BID for convulsions #COPD (chronic obstructive pulmonary disease): No signs of acute exacerbation Albuterol prn #Schizophrenia: Per outpatient records history paranoid schizophrenia, schizoaffective and bipolar disorder Continue carbamazepine, Depakote, olanzapine, clonidine Per records is on Invega injections, unclear if patient still taking or when last dose was #Tobacco use: Smoking cessation encouraged Nicotine patch DVT Prophylaxis On Eliquis med surg Full Code Follows with Dr Beltran for routine care Admission and Anticipated Discharge Date Admission Date: March 13, 2024 Subjective NAEO Reports subjective improvement in RLE, able to move leg with less pain Denies any fevers chill or other acute concerns Physical Exam Constitutional: WD/WN, vitals as above Respiratory: normal respiratory effort, lungs clear to auscultation Cardiovascular: RRR, no murmur, no edema Gastrointestinal (Abdomen): normal bowel sounds, soft, nontender, no hepatosp lenomegaly Skin: noted improvement in erythema of RLE, more dry, less lymphorrhea noted, still with isolated edema on RLE LLE wound on lateral aspect just inferior to knee--mild erythema but no signs of superimposed infection on this area Results & Data Results & Data Vital Signs (Past 12 Hours) Vital Signs Temp Pulse Resp BP Pulse Ox O2 Del Method 03/15/24 08:00 Room Air 03/15/24 07:40 36.8 C 83 18 141/86 H 96 Room Air Laboratory Results Short CBC 03/15/24 Range/Units 06:57 WBC 7.58 (4.8-10.8) K/ul Hgb 13.1 L (14.0-18.0) g/dl Hct 37.8 L (42.0-52.0) % Plt Count 206 (130-400) K/uL BMP 03/15/24 03/15/24 06:57 08:06 Sodium 130 L Potassium TNP 4.7 Chloride 95 L Carbon Dioxide 30 BUN 19 Creatinine 0.70 Glucose 111 H Calcium 8.8 Medications Administered Home Medications Medication Instructions Recorded Confirmed Last Taken apixaban 5 mg tablet (Eliquis) 5 mg PO BID 03/13/24 03/13/24 03/13/24 atorvastatin 40 mg tablet 40 mg PO DAILY 03/13/24 03/13/24 Unknown carbamazepine 200 mg tablet 250 mg PO TID 03/13/24 03/13/24 Unknown clonidine HCl 0.1 mg tablet 0.1 mg PO TID 03/13/24 03/13/24 Unknown divalproex 250 mg tablet,delayed 750 mg PO BID 03/13/24 03/13/24 Unknown release hydrochlorothiazide 12.5 mg tablet 12.5 mg PO DAILY 03/13/24 03/13/24 Unknown hydroxyzine HCl 50 mg tablet 50 mg PO QID PRN Anxiety 03/13/24 03/13/24 Unknown lisinopril 40 mg tablet 40 mg PO DAILY 03/13/24 03/13/24 Unknown metoprolol succinate 25 mg 25 mg PO DAILY 03/13/24 03/13/24 Unknown tablet,extended release 24 hr olanzapine 10 mg tablet 10 mg PO HS 03/13/24 03/13/24 03/12/24 paliperidone palmitate 234 mg/1.5 234 mg IM Q4WK 03/13/24 03/13/24 Unknown mL intramuscular syringe (Tajega Tima) quetiapine 100 mg tablet (Seroquel) 100 mg PO Q6H PRN Agitation 03/13/24 03/13/24 Unknown risankizumab-rzaa 150 mg/mL 150 mg subcut UD 03/13/24 03/13/24 Unknown subcutaneous syringe (Keeley) trazodone 150 mg tablet 75 mg PO HS 03/13/24 03/13/24 Unknown triamcinolone acetonide 0.1 % 1 applic topical DAILY PRN flare 03/13/24 03/13/24 Unknown topical cream Active Medications Generic Name Dose Route Start Last Admin Trade Name Freq PRN Reason Stop Dose Admin Acetaminophen 650 mg 03/13/24 18:19 03/14/24 01:06 Acetaminophen 325 Mg Tab PO 04/12/24 18:18 650 mg Q4H PRN Administration pain/fever Apixaban 5 mg 03/14/24 11:00 03/15/24 08:10 Apixaban 5 Mg Tablet PO 04/13/24 10:59 5 mg BID MELONIE Administration Carbamazepine 250 mg 03/13/24 21:00 03/15/24 08:10 Carbamazepine 100 Mg Chew Tab PO 04/12/24 20:59 250 mg TID MELONIE Administration Clonidine HCl 0.1 mg 03/13/24 21:00 03/15/24 08:10 Clonidine Hcl 0.1 Mg Tab PO 04/12/24 20:59 0.1 mg TID MELONIE Administration Divalproex Sodium 750 mg 03/13/24 21:00 03/15/24 08:10 Divalproex Delay Release 250 Mg Tabec PO 04/12/24 20:59 750 mg BID MELONIE Administration Hydrochlorothiazide 12.5 mg 03/14/24 09:00 03/15/24 08:09 Hydrochlorothiazide 25 Mg Tab PO 04/13/24 08:59 12.5 mg DAILY MELONIE Administration Daptomycin 425 mg/ Syringe 8.5 mls @ 4.25 mls/min 03/13/24 16:30 03/14/24 16:17 IV 03/20/24 16:29 4.25 mls/min Q24H MELONIE Administration Protocol Lactic Acid 1 gm 03/14/24 21:00 03/15/24 08:11 Ammonium Lactate 12% Lotion 225 Gm Btl EXT 04/13/24 20:59 1 gm BID MELONIE Administration Lisinopril 40 mg 03/14/24 09:00 03/15/24 08:11 Lisinopril 40 Mg Tab PO 04/13/24 08:59 40 mg DAILY MELONIE Administration Magnesium Chloride 64 mg 03/14/24 11:00 03/15/24 08:10 Magnesium Chloride W/Calcium 64mg Delayed Rel Tab PO 04/13/24 10:59 64 mg QAM MELONIE Administration Metoprolol Succinate 25 mg 03/14/24 09:00 03/15/24 08:11 Metoprolol Succ 25mg Ext Rel Tab PO 04/13/24 08:59 25 mg DAILY MELONIE Administration Miscellaneous 1 each 03/14/24 08:59 03/15/24 08:11 Remove Nicoderm Patch N/A 04/13/24 08:58 1 each DAILY@0859 MELONIE Administration Nicotine 1 patch 03/13/24 15:45 03/15/24 08:09 Nicotine 21 Mg/24 Hr Tdsy TD 04/12/24 15:44 1 patch QAM MELONIE Administration Olanzapine 10 mg 03/13/24 21:00 03/14/24 20:00 Olanzapine 10 Mg Tab PO 04/12/24 20:59 10 mg HS MELONIE Administration Trazodone HCl 75 mg 03/13/24 21:00 03/14/24 20:02 Trazodone Hcl 50 Mg Tab PO 04/12/24 20:59 75 mg HS MELONIE Administration (2) HTN (hypertension) Hypertension type: unspecified Qualified Code(s): I10 - Essential (primary) hypertension
[2024-03-15] MEDS: ONDANSETRON INJ 2 MG/ML 2 ML VIAL IV PRN (13:40)
[2024-03-16 07:11] VITALS: BP 143/86; RESP 16; TEMP 97.5; O2SAT 93
--- NOTE | 2024-03-16 09:59 | Discharge Summary ---
Discharge Summary Date of Service March 16, 2024 Principal Dx & Hospital Course #1 = Principal Diagnosis (1) Herpes zoster dermatitis: (2) Cellulitis of right lower extremity: (3) HTN (hypertension): (4) HLD (hyperlipidemia): (5) Prediabetes: (6) PAF (paroxysmal atrial fibrillation): (7) COPD (chronic obstructive pulmonary disease): (8) Schizophrenia: (9) History of traumatic brain injury: (10) Seizure disorder: On Depakote Denies recent seizure (11) Tobacco use: Plan Patient presented to the emergency room with increasing redness and swelling of his right lower extremity. Started noticing some clear yellow fluid draining from his leg as well. In the emergency room evaluation was consistent with cellulitis. Patient was admitted to the hospital. Placed on IV daptomycin. The course of his hospitalization his leg redness and swelling significantly improved. Wound culture was positive for Staphylococcus. Sensitive to Bactrim. On the day of discharge noticed that he did have some vesicular type lesions on the very upper part of his lower leg just distal to the patella. He said it seems as though it did start the area with a rash that was somewhat burning and painful. The redness seem to descend from there. This raises suspicion of possible herpes zoster with secondary bacterial infection. Patient be converted to oral Valtrex to treat herpes zoster. Also converted to oral Bactrim here today to continue antibiotic treatment for suspected secondary bacterial cellulitis. He be discharged home to outpatient care and follow-up. Notes For Next Care Provider Medication Changes From Visit Bactrim for bacterial cellulitis Valtrex for suspected herpes zoster Admission HPI Per Admitting Provider Patient is 59-year-old male with PMH HTN, HLD, paroxysmal atrial fibrillation anticoagulated on Eliquis, prediabetes, seizure disorder, COPD, tobacco use, hemochromatosis, history TBI, schizophrenia, schizoaffective disorder, bipolar disorder, psoriasis per records presented to ER for RLE edema and erythema x several days. Patient reports is currently residing at [facility]. Reports moved to area approximately 5 months ago from [place], [place]. Patient reports chronic skin discoloration to lower legs. He reports cannot tolerate compression hose. States for the last several days noted increased swelling and redness to right lower leg which has worsened. Several days ago noticed some clear yellow fluid seeping from right lower leg. He reports history right ankle fracture approximately 12 years ago. Denies any recent injury or trauma to leg. It is unclear if patient has had any chills as when asked he "states yes somebody asked me that question already". Thinks history positive MRSA nasal swab in past. Denies known history of DVT or cellulitis however patient is poor historian. When asked patient denies history of psoriasis however per chart review psoriasis is listed as a diagnosis and appears patient has been on Skyrizi in past. Is unclear if patient is still taking this. Patient reports he put some type of "skin peeling cream" to bilateral arms and legs recently. States noted skin has been peeling. He reports has done this in the past and usually follows up treatment by applying moisturizer however he did not this time. Denies diaphoresis, N/V/D/C, HELMS, dizziness, neck pain, CP, SOB, palpitations, cough, sore throat, rhinorrhea, abdominal pain, paresthesias, extremity weakness, urinary symptoms. Admission Exam Per Admitting Provider See H&P Discharge Exam Constitutional: Alert, obese, nontoxic HEENT: Mucous membranes moist. Lungs: Clear to auscultation, decreased, no wheezes rales or rhonchi CV: S1-S2, regular Abdomen: Soft, nontender, nondistended Extremities: Right lower extremity less erythematous, less swelling, no seeping from the leg. Some crusted vesicular lesions just distal to the patella extending laterally Neuro: No focal deficits Psych: Cooperative, normal mood Updated Medication List Medication Instructions Recorded Confirmed Type apixaban 5 mg tablet (Eliquis) 5 mg PO BID 03/13/24 03/13/24 History atorvastatin 40 mg tablet 40 mg PO DAILY 03/13/24 03/13/24 History carbamazepine 200 mg tablet 250 mg PO TID 03/13/24 03/13/24 History clonidine HCl 0.1 mg tablet 0.1 mg PO TID 03/13/24 03/13/24 History divalproex 250 mg tablet,delayed 750 mg PO BID 03/13/24 03/13/24 History release hydrochlorothiazide 12.5 mg tablet 12.5 mg PO DAILY 03/13/24 03/13/24 History hydroxyzine HCl 50 mg tablet 50 mg PO QID PRN Anxiety 03/13/24 03/13/24 History lisinopril 40 mg tablet 40 mg PO DAILY 03/13/24 03/13/24 History metoprolol succinate 25 mg 25 mg PO DAILY 03/13/24 03/13/24 History tablet,extended release 24 hr olanzapine 10 mg tablet 10 mg PO HS 03/13/24 03/13/24 History paliperidone palmitate 234 mg/1.5 234 mg IM Q4WK 03/13/24 03/13/24 History mL intramuscular syringe (Invega Sustenna) quetiapine 100 mg tablet (Seroquel) 100 mg PO Q6H PRN Agitation 03/13/24 03/13/24 History risankizumab-rzaa 150 mg/mL 150 mg subcut UD 03/13/24 03/13/24 History subcutaneous syringe (Skyrizi) trazodone 150 mg tablet 75 mg PO HS 03/13/24 03/13/24 History triamcinolone acetonide 0.1 % 1 applic topical DAILY PRN flare 03/13/24 03/13/24 History topical cream nicotine 21 mg/24 hr daily 1 patch transdermal QAM #14 ea 03/16/24 Rx transdermal patch (Nicoderm CQ) sulfamethoxazole 800 1 tab PO Q12 7 days #14 tabs 03/16/24 Rx mg-trimethoprim 160 mg tablet (Bactrim DS) valacyclovir 500 mg tablet 1,000 mg (2 x 500 mg) PO TID 5 03/16/24 Rx days #30 tabs Hospital Stay Data Consultations 03/13/24 14:53 ED Decision to Admit Stat Diagnostic Imagining Performed 03/13/24 11:50 US venous doppler LE RT Stat reviewed imaging, laboratory and diagnostic studies. Pertinent findings as below. Blood cultures no growth to date Wound culture growing Staph aureus and Streptococcus WBCs 7.5 Hemoglobin 13.1 Platelets 206 Sodium 130 Creatinine 0.70 Magnesium 1.6, will be replaced prior to discharge Procalcitonin 0.16 Pending Results Patient Have Any Pending Studies at Discharge: No Discharge Instructions Given to Patient (Per Discharging Provider) Complete the course of oral antibiotics and antiviral medication. Total Time Total Time Spent Total Time Spent (In Minutes): 32
[2024-03-16] MEDS: SULFAMETHOXAZOLE/TRIMETHOPRIM DS 800/160MG TAB PO SCH (10:06)
[2024-03-16] MEDS: valACYclovir HCL 500 MG TABLET PO SCH (10:06)
[2024-03-16] MEDS: MAGNESIUM OXIDE 400 MG TAB PO ONE (10:46)
[2024-03-16] MEDS: Nursing to Pharmacy Communication SCH (10:46)
[2024-03-16 11:08] VITALS: PULSE 70
== END 2024-03-16 13:13 | disposition home or self-care (01) | DRG 603 ==
LOC: ED 10:55 → 3N 15:30 → SUATTDRO 15:30 → INTOOBSV 15:30 → 3N 17:50

== ENCOUNTER 2024-03-23 21:48 | Inpatient (IN) ==
[2024-03-23] MEDS ORDERED: VANCOMYCIN CONSULT ACTIVE PRN (21:55)
[2024-03-23] MEDS: cefTRIAXone SODIUM 2,000 MG/50 ML BAG IV STA (22:06)
[2024-03-23 22:15] LABS: Basophils # (auto) 0.04 K/uL (0.00-0.20); Basophils % (auto) 0.4 %; Eosinophils # (auto) 0.14 K/uL (0.00-0.50); Eosinophils % (auto) 1.5 %; Hematocrit (blood only) 38.4 % (42.0-52.0); Hemoglobin 13.3 g/dl (14.0-18.0); Immature Granulocytes # (auto) 0.09 K/uL (0.01-0.20); Lymphocytes # (auto) 1.44 K/uL (1.20-3.40); Lymphocytes % (auto) 15.6 %; Mean Corpuscular Hemoglobin 32.8 pg (25.0-34.0); Mean Corpuscular Hgb Conc 34.6 g/dL (32.0-36.0); Mean Corpuscular Volume 94.6 fL (80.0-100.0); Mean Platelet Volume 9.5 fL (9.4-12.4); Monocytes # (auto) 1.29 K/uL (0.11-0.59); Monocytes % (auto) 13.9 %; Neutrophils # (auto) 6.25 K/uL (1.40-6.50); Neutrophils % (auto) 67.6 %; Platelet Count 271 K/uL (130-400); RDW Coefficient of Variation 13.8 % (11.5-14.5); RDW Standard Deviation 47.6 fL (36.4-46.3); Red Blood Count 4.06 M/uL (4.70-6.10); White Blood Count 9.25 K/ul (4.8-10.8)
[2024-03-23 22:27] LABS: Alanine Aminotransferase 8 U/L (7-52); Albumin Globulin Ratio 1.1 (0.9-2); Albumin Level 3.7 gm/dl (3.4-5.0); Alkaline Phosphatase 89 U/L (34-104); Anion Gap 6 (3-11); Aspartate Aminotransferase 14 U/L (13-39); Bilirubin,Total 0.3 mg/dl (0.2-1.0); Blood Urea Nitrogen 15 mg/dl (6-23); Calcium 9.6 mg/dl (8.6-10.3); Carbon Dioxide 30 mmol/L (21-32); Chloride 96 mmol/L (98-107); Creatine Kinase 138 U/L (30-223); Globulin 3.4 gm/dl (2.5-4.0); Glucose 163 mg/dl (70-99(Fasting)); Lipase 59 U/L (11-82); Potassium 4.4 mmol/L (3.5-5.1); Sodium 132 mmol/L (136-145); Total Protein 7.1 gm/dl (6.0-8.3)
[2024-03-23 22:33] LABS: Troponin I High Sensitivity 5.3 pg/ml (0-20)
[2024-03-23] MEDS: VANCOMYCIN HCL 2,000 MG in DEXTROSE 5% 500 ML IV ONE (22:49)
--- NOTE | 2024-03-23 22:58 | Emergency Department Note ---
History of Present Illness General Chief complaint: Cardiac Assessment Stated complaint: LEG PAIN, CHEST PRESSURE Time Seen by Provider: 03/23/24 21:51 History of Present Illness This 59-year-old male that was seen earlier today presents ER for chest pain and worsening cellulitis to the lower legs. Patient was discharged home on Keflex. Patient denies fever, chills, cough, congestion, dyspnea, abdominal pain, flulike illness. Home Medications Medication Instructions Recorded Confirmed Type apixaban 5 mg tablet (Eliquis) 5 mg PO BID 03/13/24 03/23/24 History atorvastatin 40 mg tablet 40 mg PO DAILY 03/13/24 03/23/24 History carbamazepine 200 mg tablet 250 mg PO TID 03/13/24 03/23/24 History clonidine HCl 0.1 mg tablet 0.1 mg PO TID 03/13/24 03/23/24 History divalproex 250 mg tablet,delayed 750 mg PO BID 03/13/24 03/23/24 History release hydrochlorothiazide 12.5 mg tablet 12.5 mg PO DAILY 03/13/24 03/23/24 History hydroxyzine HCl 50 mg tablet 50 mg PO QID PRN Anxiety 03/13/24 03/23/24 History lisinopril 40 mg tablet 40 mg PO DAILY 03/13/24 03/23/24 History metoprolol succinate 25 mg 25 mg PO DAILY 03/13/24 03/23/24 History tablet,extended release 24 hr olanzapine 10 mg tablet 10 mg PO HS 03/13/24 03/23/24 History paliperidone palmitate 234 mg/1.5 234 mg IM Q4WK 03/13/24 03/23/24 History mL intramuscular syringe (Invega Sustenna) quetiapine 100 mg tablet (Seroquel) 100 mg PO Q6H PRN Agitation 03/13/24 03/23/24 History risankizumab-rzaa 150 mg/mL 150 mg subcut UD 03/13/24 03/23/24 History subcutaneous syringe (Skyrizi) trazodone 150 mg tablet 75 mg PO HS 03/13/24 03/23/24 History triamcinolone acetonide 0.1 % 1 applic topical DAILY PRN flare 03/13/24 03/23/24 History topical cream nicotine 21 mg/24 hr daily 1 patch transdermal QAM #14 ea 03/16/24 03/23/24 Rx transdermal patch (Nicoderm CQ) cephalexin 500 mg capsule 500 mg PO QID 10 days #40 caps 03/23/24 Rx Allergies Allergy/AdvReac Type Severity Reaction Status Date / Time latex Allergy Severe Burning Unverified 03/13/24 16:36 Rash Latex, Natural Rubber Allergy Severe Burning Unverified 03/13/24 16:36 Rash tamsulosin Allergy Rash Unverified 03/13/24 16:43 warfarin AdvReac Unknown Verified 03/13/24 16:36 Past Med/Surg History Problem List (Updated 03/24/24 @ 01:03 by Cassie Velez PA-C) Chest pain (Acute) Bilateral cellulitis of lower leg (Acute) Herpes zoster dermatitis Current use of half-way anticoagulation (Acute) History of traumatic brain injury Tobacco use PAF (paroxysmal atrial fibrillation) (Acute) COPD (chronic obstructive pulmonary disease) Seizure disorder Prediabetes HLD (hyperlipidemia) HTN (hypertension) (Acute) Cellulitis of right lower extremity (Acute) Surgical History Hx of tonsillectomy H/O foot surgery reports history Left foot fracture Family History Other Diabetes Dyslipidemia Hypertension Social History Smoking Status: Current every day smoker Tobacco Type: Cigarettes Cigarettes Per Day: 3/4 pack a day; Hx Alcohol Use: No Hx Substance Use: No Preferred Language: Thai Communication Ability: Effective Facing Grinder Required: No Beliefs That Will Affect Care: None Current Living Situation: Senior Living Feels Safe at Home: Yes Assistive Devices: None Review of Systems A total of 10 systems reviewed and were otherwise negative Physical Exam Vital Signs Vital Signs - 24 hr 03/23/24 22:00 03/23/24 22:00 03/23/24 22:00 Temperature 36.9 C Temperature Source Oral Pulse Rate 83 Pulse Rate [Right Finger] 83 Respiratory Rate 18 18 Respiratory Effort / Characteristics Non-Labored Spontaneous Non-Labored Spontaneous Blood Pressure 151/76 H Blood Pressure [Left Arm] 151/76 H Blood Pressure Mean 101 Blood Pressure Mean [Left Arm] 101 Blood Pressure Position Lying Pulse Oximetry 97 97 97 Oxygen Delivery Method Room Air Room Air Room Air Sepsis Recent Fever Within 48 Hours No Sepsis New/Unexplained Change in Mental Status No Sepsis Action Taken by Nursing No Action Required 03/23/24 22:00 03/23/24 22:09 03/24/24 00:23 Temperature Temperature Source Pulse Rate 83 80 Pulse Rate [Right Finger] 80 Respiratory Rate 18 20 Respiratory Effort / Characteristics Blood Pressure Blood Pressure [Left Arm] 170/94 H Blood Pressure Mean Blood Pressure Mean [Left Arm] 119 Blood Pressure Position Pulse Oximetry 97 97 Oxygen Delivery Method Room Air Room Air Sepsis Recent Fever Within 48 Hours Sepsis New/Unexplained Change in Mental Status Sepsis Action Taken by Nursing VITALS: Vitals are noted on the nurse's note and reviewed by myself. Vital signs stable. GENERAL: White male, in no acute distress, nondiaphoretic, well-developed well- nourished. SKIN: Capillary reflex less than 2 seconds. HEENT: Normocephalic. PERRLA. EOMI. Nares patent. Mucous membranes moist. Neck is supple without nuchal rigidity. HEART: Regular rate and rhythm LUNGS: Clear to auscultation bilaterally without wheezes, rales or rhonchi. No retractions or accessory muscle use. ABDOMEN: Positive bowel sounds x 4. Normal tympanic percussion. Soft, nontender, without masses or organomegaly. Bain sign negative. No guarding or rebound tenderness. no CVA tenderness MUSCULOSKELETAL: No gross musculoskeletal defects. Bilateral lower legs erythematous and edematous, right worse than left. NEURO: Patient was alert and oriented to person place and time. No focal neurological deficits. Course Administered Medications Discontinued Medications Ceftriaxone Sodium (Rocephin) 2,000 mg in 50 mls @ 100 mls/hr IV NOW STA Stop: 03/23/24 22:21 Last Infusion: 03/23/24 22:51 Dose: Infused Documented By: Admin: 03/23/24 22:06 Dose: 100 mls/hr Documented By: ANTONINA Vancomycin HCl 2,000 mg/ (Dextrose) 540 mls @ 200 mls/hr IV NOW ONE Stop: 03/24/24 00:24 Last Admin: 03/23/24 22:49 Dose: 200 mls/hr Documented By: ANTONINA Ioversol (Optiray 320 125ml) 94 ml IV ONCE ONE Stop: 03/23/24 23:54 Last Admin: 03/23/24 23:53 Dose: 94 ml Documented By: ASIA Medical Decision Making Medical Records Attestation: I reviewed the patient's medical records. Home Medications Current Medication List: was personally reviewed by me Laboratory Data Attestation: I reviewed the patient's lab results. 03/23/24 Unknown 03/23/24 Unknown Lab Results 03/23/24 Range/Units Unknown WBC 9.25 (4.8-10.8) K/ul RBC 4.06 L (4.70-6.10) M/uL Hgb 13.3 L (14.0-18.0) g/dl Hct 38.4 L (42.0-52.0) % MCV 94.6 (80.0-100.0) fL MCH 32.8 (25.0-34.0) pg MCHC 34.6 (32.0-36.0) g/dL RDW Std Deviation 47.6 H (36.4-46.3) fL RDW Coeff of Alexander 13.8 (11.5-14.5) % Plt Count 271 (130-400) K/uL MPV 9.5 (9.4-12.4) fL Immature Gran % (Auto) 1.0 % Neut % (Auto) 67.6 % Lymph % (Auto) 15.6 % Gem % (Auto) 13.9 % Eos % (Auto) 1.5 % Baso % (Auto) 0.4 % Neut # (Auto) 6.25 (1.40-6.50) K/uL Lymph # (Auto) 1.44 (1.20-3.40) K/uL Gem # (Auto) 1.29 H (0.11-0.59) K/uL Eos # (Auto) 0.14 (0.00-0.50) K/uL Baso # (Auto) 0.04 (0.00-0.20) K/uL Immature Gran # (Auto) 0.09 (0.01-0.20) K/uL Sodium 132 L (136-145) mmol/L Potassium 4.4 (3.5-5.1) mmol/L Chloride 96 L (98-107) mmol/L Carbon Dioxide 30 (21-32) mmol/L Anion Gap 6 (3-11) BUN 15 (6-23) mg/dl Creatinine 0.88 (0.6-1.4) mg/dl Est Cr Clr Drug Dosing Not Reportable eGFR 98.44 BUN/Creatinine Ratio 17.0 (10-20) Glucose 163 H (70-99(Fasting)) mg/dl Calcium 9.6 (8.6-10.3) mg/dl Total Bilirubin 0.3 (0.2-1.0) mg/dl AST 14 (13-39) U/L ALT 8 (7-52) U/L Alkaline Phosphatase 89 (34-104) U/L Total Creatine Kinase 138 (30-223) U/L Troponin I High Sens 5.3 (0-20) pg/ml Total Protein 7.1 (6.0-8.3) gm/dl Albumin 3.7 (3.4-5.0) gm/dl Globulin 3.4 (2.5-4.0) gm/dl Albumin/Globulin Ratio 1.1 (0.9-2) Lipase 59 (11-82) U/L Imaging Data Attestation: I personally reviewed and interpreted this imaging study as follows: Radiologist's Impression: Chest CTA 03/23/24 21:52 EXAM: CT angio chest PE protocol CLINICAL HISTORY: EMS reports that pt was seen discharged today from hospital ([facility]) for right leg pain and cellulitis. EMS reports pt had increased leg pain when calling the ambulance later today and on the way here reported some "chest pressure" but then pointed to his lower abdomen. pt is denying chest pressure at this moment. pt has no cardiac hx 94 ml opti 320 PW TECHNIQUE: Contiguous axial images were obtained from the neck base through the upper abdomen following intravenous administration of iodinated contrast material. Angiographic images were processed, 3D MIP images were acquired for interpretation. If IV contrast material had not been administered, the likelihood of detecting abnormalities relevant to the patient's condition would have been substantially decreased. Coronal and sagittal 3-D MIPs were likewise performed and indicated to increase the sensitivity of detecting diffuse clinically relevant pathology. CT scan was performed according to ALARA (as low as reasonably achievable). COMPARISON: None. FINDINGS: Adequate contrast bolus without evidence of pulmonary embolism. 14 x 9 mm nodule is noted in the posterior basal segment of the right lower lobe. Positional ground glass densities with subtle interstitial thickening are seen involving the dependent portions of bilateral lower lobes. Few patchy areas of ground-glass densities with interstitial thickening also noted involving anterior segments of bilateral upper lobes, more on left side No pleural effusion. No pericardial effusion is identified. The central airways are patent. Cardiomegaly seen. There are no appreciable coronary artery and aortic atherosclerotic calcifications. No mediastinal, hilar, or axillary lymphadenopathy is noted. The visualized portion of the thyroid is unremarkable. No suspicious lytic or sclerotic osseous lesions are identified. Degenerative changes are noted in the visualized spine. Old fractures of left 6th 7th and 8th ribs is noted. IMPRESSION: 1. No evidence of pulmonary embolism. 2. 14 x 9 mm nodule is noted in the posterior basal segment of the right lower lobe. No suspicious features of malignancy in the current study. Correlation with prior scan / follow up is advised as per Fleischner guidelines. 3. Cardiomegaly. 4. Positional ground glass densities with subtle interstitial thickening are seen involving the dependent portions of bilateral lower lobes. 5. Few patchy areas of ground-glass densities with interstitial thickening also noted involving anterior segments of bilateral upper lobes, more on left side. Non-specific vs infective. Suggested clinical/lab correlation. Electronically signed by Ebenezer Rodriguez 03-24-2024 12:57 AM Chest X-Ray 03/23/24 21:52 Exam(s): XR CXR 1 VIEW EXAM: XR Chest, 1 View CLINICAL HISTORY: Reason for exam: Chest pain, nonspecific. TECHNIQUE: Frontal view of the chest. COMPARISON: 03/13/24 FINDINGS: Lungs: Unremarkable. No consolidation. Pleural space: Unremarkable. No pleural effusion or pneumothorax. Heart: Stable heart size. Bones/joints: No acute fracture. No dislocation. Tubes, lines and devices: Loop recorder projects over the left chest. IMPRESSION: No acute findings in the chest. Electronically signed by: Krzysztof Washington M.D. 03/23/24 23:31 PM MDM Narrative Prior records/ancillary studies reviewed. Triage Nursing notes reviewed. Additional history obtained from EMS. The patient's history was concerning for chest pain and leg cellulitis. Differential diagnosis: Etiologies such as cardiac ischemia, aortic dissection, pulmonary embolism, pneumonia, pneumothorax, musculoskeletal, infections, pericarditis, myocarditis, esophageal rupture, gastrointestinal, as well as others were entertained. Physical examination: As above. ER treatment provided: An order was placed for continuous cardiac monitoring. The monitor shows a rate of 60-100 with a sinus rhythm per my interpretation. Rocephin and vancomycin were ordered On reassessment the patient felt better. Diagnostic interpretation by me: The electrocardiogram was negative for pathologic change. Ordered for chest pain EKG: Normal sinus, poor baseline, no acute ST-T wave changes, rate of 86. Impression normal sinus rhythm independently interpreted by myself I think arrhythmia is unlikely. EKG shows normal sinus rhythm with no interval abnormalities such as QT prolongation or WPW. There are no findings to suggest Brugada syndrome. Cardiac monitoring in the emergency department reveals no tachycardic or bradycardic dysrhythmia. Hypertrophic cardiomyopathy was considered but there are no clear historical elements pointing toward this. EKG is not suggestive. The QRS voltage is not extremely large and there are no suggestive Q waves. The labs Independently Interpreted by myself revealed no worrisome leukocytosis, negative troponin Imaging studies: Imaging was reviewed and read by radiology as above HEART SCORE: Hx: high/mod/low suspicion: 0 ECG: ST depression/nonspecific changes/normal: 0 Age: Greater than 65/45-64/less than 45: 1 Risk factors: (Hypertension, hyperlipidemia, diabetes, coronary disease, tobacco use, cocaine use): 2 Troponin: Greater than 2 times normal limits/1-2 times normal limits/normal: 0 Total: 3 Consultation: A consultation was placed with the hospitalist. The case was discussed and diagnostics were reviewed. The patient was evaluated in the ER for further treatment. Exam and history seem consistent with worsening cellulitis and chest pain. No PE. Patient states he has a history of MRSA despite the swab from last ER admission being negative. He was started on antibiotics. Medicine was consulted and the case is discussed. He will be admitted to the medical service. CTA negative. Low heart score. Negative troponin. By the evaluation outlined above emergent etiologies such as cardiac ischemia, aortic dissection, pulmonary embolism, pneumonia, pneumothorax, pericarditis, myocarditis, gastrointestinal, as well as others were deemed relatively unlikely. The pt informed about the findings as listed above. All questions were answered and pleased with the treatment. The chart was completed utilizing [employer] voice recognition software. Grammatical errors, random word insertions, pronoun errors, and incomplete sentences are an occassional consequence of this system due to software limitations, ambient noise, and hardware issues. Any formal questions or concerns about the content, text, or information contained within the body of this dictation should be directly addressed to the physician occupational therapist assistant for clarification. Impression & Plan Bilateral cellulitis of lower leg, Chest pain Discharge Plan Visit Data Chief Complaint: Cardiac Assessment Stated Complaint: LEG PAIN, CHEST PRESSURE ED Provider: Nitin Benoit ED Midlevel Provider: Cassie Velez Discharge Problem: Bilateral cellulitis of lower leg, Chest pain Patient Disposition: Being Evaluated by Hospitalist Condition: Good Forms Stand Alone Forms: My [facility] Prescriptions Prescriptions: No Action atorvastatin 40 mg Tablet 40 mg PO DAILY Eliquis 5 mg Tablet 5 mg PO BID olanzapine 10 mg Tablet 10 mg PO HS triamcinolone acetonide 0.1 % Cream 1 applic TOPICAL DAILY PRN (Reason: flare) clonidine HCl 0.1 mg Tablet 0.1 mg PO TID divalproex 250 mg Tablet,Delayed Release (Dr/Ec) 750 mg PO BID hydroxyzine HCl 50 mg Tablet 50 mg PO QID PRN (Reason: Anxiety) carbamazepine 200 mg Tablet 250 mg PO TID trazodone 150 mg Tablet 75 mg PO HS metoprolol succinate 25 mg Tablet Extended Release 24 Hr 25 mg PO DAILY lisinopril 40 mg Tablet 40 mg PO DAILY hydrochlorothiazide 12.5 mg Tablet 12.5 mg PO DAILY Invega Sustenna 234 mg/1.5 mL Syringe 234 mg IM Q4WK Rx Instructions: Has not been filled per [facility] pharmacy Skyrizi 150 mg/mL Syringe 150 mg SUBCUT UD Rx Instructions: Q12wks quetiapine [Seroquel] 100 mg Tablet 100 mg PO Q6H PRN (Reason: Agitation) nicotine [Nicoderm CQ] 21 mg/24 hr Patch 24 Hour 1 patch transdermal QAM Qty: 14 0RF cephalexin 500 mg capsule 500 mg PO QID 10 Days Qty: 40 0RF Referrals Referrals: Sergo Beltran MD [Primary Care Provider] -
--- NOTE | 2024-03-23 23:32 | XRay Report ---
Exam(s): XR CXR 1 VIEW EXAM: XR Chest, 1 View CLINICAL HISTORY: Reason for exam: Chest pain, nonspecific. TECHNIQUE: Frontal view of the chest. COMPARISON: 03/13/24 FINDINGS: Lungs: Unremarkable. No consolidation. Pleural space: Unremarkable. No pleural effusion or pneumothorax. Heart: Stable heart size. Bones/joints: No acute fracture. No dislocation. Tubes, lines and devices: Loop recorder projects over the left chest. IMPRESSION: No acute findings in the chest. Electronically signed by: Krzysztof Washington M.D. 03/23/24 23:31 PM
[2024-03-23] MEDS: OPTIRAY 320 125ml IV ONE (23:53)
--- NOTE | 2024-03-24 00:57 | CT Scan Report ---
EXAM: CT angio chest PE protocol CLINICAL HISTORY: EMS reports that pt was seen discharged today from hospital ([facility]) for right leg pain and cellulitis. EMS reports pt had increased leg pain when calling the ambulance later today and on the way here reported some "chest pressure" but then pointed to his lower abdomen. pt is denying chest pressure at this moment. pt has no cardiac hx 94 ml opti 320 PW TECHNIQUE: Contiguous axial images were obtained from the neck base through the upper abdomen following intravenous administration of iodinated contrast material. Angiographic images were processed, 3D MIP images were acquired for interpretation. If IV contrast material had not been administered, the likelihood of detecting abnormalities relevant to the patient's condition would have been substantially decreased. Coronal and sagittal 3-D MIPs were likewise performed and indicated to increase the sensitivity of detecting diffuse clinically relevant pathology. CT scan was performed according to ALARA (as low as reasonably achievable). COMPARISON: None. FINDINGS: Adequate contrast bolus without evidence of pulmonary embolism. 14 x 9 mm nodule is noted in the posterior basal segment of the right lower lobe. Positional ground glass densities with subtle interstitial thickening are seen involving the dependent portions of bilateral lower lobes. Few patchy areas of ground-glass densities with interstitial thickening also noted involving anterior segments of bilateral upper lobes, more on left side No pleural effusion. No pericardial effusion is identified. The central airways are patent. Cardiomegaly seen. There are no appreciable coronary artery and aortic atherosclerotic calcifications. No mediastinal, hilar, or axillary lymphadenopathy is noted. The visualized portion of the thyroid is unremarkable. No suspicious lytic or sclerotic osseous lesions are identified. Degenerative changes are noted in the visualized spine. Old fractures of left 6th 7th and 8th ribs is noted. IMPRESSION: 1. No evidence of pulmonary embolism. 2. 14 x 9 mm nodule is noted in the posterior basal segment of the right lower lobe. No suspicious features of malignancy in the current study. Correlation with prior scan / follow up is advised as per Fleischner guidelines. 3. Cardiomegaly. 4. Positional ground glass densities with subtle interstitial thickening are seen involving the dependent portions of bilateral lower lobes. 5. Few patchy areas of ground-glass densities with interstitial thickening also noted involving anterior segments of bilateral upper lobes, more on left side. Non-specific vs infective. Suggested clinical/lab correlation. Electronically signed by Ebenezer Rodriguez 03-24-2024 12:57 AM
[2024-03-24 01:32] LABS: Magnesium 1.6 mg/dl (1.7-2.4)
--- NOTE | 2024-03-24 01:44 | History & Physical Report ---
Date of Service March 24, 2024 Assessment & Plan (1) Cellulitis: Plan: RLE cellulitis, failed outpatient treatment Presumptive shingles ongoing Valtrex Rx No sepsis for now Hypertensive urgency secondary to illness/discomfort Acute on chronic hyponatremia, HCTZ contributory, rule out carbamazepine toxicity A-fib on Eliquis hx CVA hyperlipidemia, on statin Rx COPD, chronic cough symptoms DM2 on oral medications, well-controlled as of recent hemoglobin A1c of 5.19 December 2023 chronic anemia, hemoglobin at baseline seizure disorder/history of traumatic brain injury, stable symptoms hx mood disorder/paranoid schizophrenia/schizoaffective disorder ongoing tobacco abuse Medical telemetry given elevated BP IV metoprolol 1 dose now Doxycycline for RLE cellulitis Complete Valtrex course Hyponatremia workup DC HCTZ on discharge Check Tegretol level (currently a send out test at [facility]), hold Tegretol for now ISS BG goal 1 10-1 40 Nicotine patch as needed DVT prophylaxis. [employer] Full code Text document was generated using [employer] voice recognition software. It may contain grammatical or spelling errors. Kindly contact undersigned for clarification of any documentation item in question. History of Present Illness Chief Complaint: Worsening leg swelling Primary Care Provider: Sergo Beltran MD History obtained from patient and records. Medical history significant for A-fib on Eliquis, CVA, hypertension, hyperlipidemia, COPD, DM2 on oral medications, hyperprolactinemia as per records chronic hyponatremia, hemochromatosis as per records, chronic anemia (baseline hemoglobin 12-13), seizure disorder, history of traumatic brain injury, mood disorder, paranoid schizophrenia/schizoaffective disorder, BPH, ongoing tobacco abuse. Recent confinement 2 weeks ago for herpes zoster dermatitis presenting as RLE swelling with clear yellow fluid drainage. Concern for possible herpes zoster with secondary bacterial infection. Wound CS grew Staphylococcus. Patient discharged on Bactrim and Valtrex course. Initial improvement of swelling following discharge. Last couple of days, patient noted severe worsening of RLE swelling. No chest pain or unusual shortness of breath. Chronic cough symptoms productive of white sputum. Patient seen at PCPs office yesterday. Patient subsequently directed to ER. Vancomycin and ceftriaxone administered at the ER. Medical History as above Surgical History : Tonsillectomy, hydrocele repair, foot nerve decompression, nasal cyst removal Family History : Mood disorder, DM, TIA Personal/Social history : 1 pack daily, no EtOH intake, businessman Allergies Allergy/AdvReac Type Severity Reaction Status Date / Time latex Allergy Severe Burning Unverified 03/13/24 16:36 Rash Latex, Natural Rubber Allergy Severe Burning Unverified 03/13/24 16:36 Rash rivaroxaban [From Xarelto] Allergy Unknown Verified 03/24/24 03:54 tamsulosin Allergy Rash Unverified 03/13/24 16:43 losartan AdvReac Hypertensio Verified 03/24/24 03:54 n warfarin AdvReac Unknown Verified 03/13/24 16:36 Home Medications Medication Instructions Recorded Confirmed Type apixaban 5 mg tablet (Eliquis) 5 mg PO BID 03/13/24 03/24/24 History atorvastatin 40 mg tablet 40 mg PO DAILY 03/13/24 03/24/24 History carbamazepine 200 mg tablet 250 mg PO TID 03/13/24 03/24/24 History clonidine HCl 0.1 mg tablet 0.1 mg PO TID 03/13/24 03/24/24 History divalproex 250 mg tablet,delayed 750 mg PO BID 03/13/24 03/24/24 History release hydrochlorothiazide 12.5 mg tablet 12.5 mg PO DAILY 03/13/24 03/24/24 History hydroxyzine HCl 50 mg tablet 50 mg PO QID PRN Anxiety 03/13/24 03/24/24 History lisinopril 40 mg tablet 40 mg PO DAILY 03/13/24 03/24/24 History metoprolol succinate 25 mg 25 mg PO DAILY 03/13/24 03/24/24 History tablet,extended release 24 hr paliperidone palmitate 234 mg/1.5 234 mg IM Q4WK 03/13/24 03/24/24 History mL intramuscular syringe (Invega Sustenna) quetiapine 100 mg tablet (Seroquel) 100 mg PO Q6H PRN Agitation 03/13/24 03/24/24 History risankizumab-rzaa 150 mg/mL 150 mg subcut UD 03/13/24 03/24/24 History subcutaneous syringe (Skyrizi) trazodone 150 mg tablet 75 mg PO HS 03/13/24 03/24/24 History triamcinolone acetonide 0.1 % 1 applic topical 2XD 03/13/24 03/24/24 History topical cream sulfamethoxazole 800 1 tab PO BID 03/24/24 03/24/24 History mg-trimethoprim 160 mg tablet (Bactrim DS) valacyclovir 500 mg tablet 1,000 mg PO 3XD 03/24/24 03/24/24 History Past Med/Surg History Problem List (Updated 03/24/24 @ 08:07 by Hayden Villeda MD) Cellulitis Chest pain (Acute) Bilateral cellulitis of lower leg (Acute) Herpes zoster dermatitis Current use of long-term anticoagulation (Acute) History of traumatic brain injury Tobacco use PAF (paroxysmal atrial fibrillation) (Acute) COPD (chronic obstructive pulmonary disease) Seizure disorder Prediabetes HLD (hyperlipidemia) HTN (hypertension) (Acute) Cellulitis of right lower extremity (Acute) Surgical History Hx of tonsillectomy H/O foot surgery reports history Left foot fracture Family History Other Diabetes Dyslipidemia Hypertension Social History Smoking Status: Current every day smoker Tobacco Type: Cigarettes Cigarettes Per Day: 3/4 pack a day; Hx Alcohol Use: No Hx Substance Use: No Preferred Language: Botswanan Communication Ability: Effective [employer] Required: No Beliefs That Will Affect Care: None Current Living Situation: Boarding Home Current Living Situation Comment: [facility] [place] Feels Safe at Home: Hesitant to Answer Safety Concerns: Feels Safe At This Time Assistive Devices: Denture - Lower and Glasses Assistive Devices Comment: reading glasses Review of Systems Review of Systems: As per HPI, all other systems reviewed and negative Physical Exam Physical Exam: GENERAL: Comfortable, obese, dysarthric (chronic), no respiratory distress SKIN: Pallor , warm HEENT: Partial alopecia, pale palpebral conjunctivae, no ptosis, dry buccal mucosa NECK : Supple, short neck, no tenderness CHEST : Decreased breath sounds, scattered expiratory wheezes, no tenderness HEART : RRR, no obvious murmurs ABDOMEN: Some distention, nontender EXTREMITIES : Tender RLE induration with crusted lesions, no other conspicuous deformities noted NEUROLOGIC : Coherent, no facial asymmetry, chronic dysarthria, no other gross focality Results & Data Results & Data Vital Signs (Past 12 Hours) Vital Signs Temp Pulse Pulse Resp BP BP Pulse Ox 03/24/24 00:23 80 20 170/94 H 97 03/23/24 22:09 80 03/23/24 22:00 83 18 97 03/23/24 22:00 83 18 151/76 H 97 03/23/24 22:00 97 03/23/24 22:00 36.9 C 83 18 151/76 H 97 O2 Del Method 03/24/24 00:23 Room Air 03/23/24 22:09 03/23/24 22:00 Room Air 03/23/24 22:00 Room Air 03/23/24 22:00 Room Air 03/23/24 22:00 Room Air Laboratory Results Laboratory Results WBC 9.25 K/ul (4.8-10.8) 03/23/24 Unknown RBC 4.06 M/uL (4.70-6.10) L 03/23/24 Unknown Hgb 13.3 g/dl (14.0-18.0) L 03/23/24 Unknown Hct 38.4 % (42.0-52.0) L 03/23/24 Unknown MCV 94.6 fL (80.0-100.0) 03/23/24 Unknown MCH 32.8 pg (25.0-34.0) 03/23/24 Unknown MCHC 34.6 g/dL (32.0-36.0) 03/23/24 Unknown RDW Std Deviation 47.6 fL (36.4-46.3) H 03/23/24 Unknown RDW Coeff of Alexander 13.8 % (11.5-14.5) 03/23/24 Unknown Plt Count 271 K/uL (130-400) 03/23/24 Unknown MPV 9.5 fL (9.4-12.4) 03/23/24 Unknown Immature Gran % (Auto) 1.0 % 03/23/24 Unknown Neut % (Auto) 67.6 % 03/23/24 Unknown Lymph % (Auto) 15.6 % 03/23/24 Unknown [place] % (Auto) 13.9 % 03/23/24 Unknown Eos % (Auto) 1.5 % 03/23/24 Unknown Baso % (Auto) 0.4 % 03/23/24 Unknown Neut # (Auto) 6.25 K/uL (1.40-6.50) 03/23/24 Unknown Lymph # (Auto) 1.44 K/uL (1.20-3.40) 03/23/24 Unknown [place] # (Auto) 1.29 K/uL (0.11-0.59) H 03/23/24 Unknown Eos # (Auto) 0.14 K/uL (0.00-0.50) 03/23/24 Unknown Baso # (Auto) 0.04 K/uL (0.00-0.20) 03/23/24 Unknown Immature Gran # (Auto) 0.09 K/uL (0.01-0.20) 03/23/24 Unknown Sodium 132 mmol/L (136-145) L 03/23/24 Unknown Potassium 4.4 mmol/L (3.5-5.1) 03/23/24 Unknown Chloride 96 mmol/L (98-107) L 03/23/24 Unknown Carbon Dioxide 30 mmol/L (21-32) 03/23/24 Unknown Anion Gap 6 (3-11) 03/23/24 Unknown BUN 15 mg/dl (6-23) 03/23/24 Unknown Creatinine 0.88 mg/dl (0.6-1.4) 03/23/24 Unknown Est Cr Clr Drug Dosing Not Reportable 03/23/24 Unknown eGFR 98.44 03/23/24 Unknown BUN/Creatinine Ratio 17.0 (10-20) 03/23/24 Unknown Glucose 163 mg/dl (70-99(Fasting)) H 03/23/24 Unknown Calcium 9.6 mg/dl (8.6-10.3) 03/23/24 Unknown Magnesium 1.6 mg/dl (1.7-2.4) L 03/23/24 Unknown Total Bilirubin 0.3 mg/dl (0.2-1.0) 03/23/24 Unknown AST 14 U/L (13-39) 03/23/24 Unknown ALT 8 U/L (7-52) 03/23/24 Unknown Alkaline Phosphatase 89 U/L (34-104) 03/23/24 Unknown Total Creatine Kinase 138 U/L (30-223) 03/23/24 Unknown Troponin I High Sens 5.3 pg/ml (0-20) 03/23/24 Unknown Total Protein 7.1 gm/dl (6.0-8.3) 03/23/24 Unknown Albumin 3.7 gm/dl (3.4-5.0) 03/23/24 Unknown Globulin 3.4 gm/dl (2.5-4.0) 03/23/24 Unknown Albumin/Globulin Ratio 1.1 (0.9-2) 03/23/24 Unknown Lipase 59 U/L (11-82) 03/23/24 Unknown Impressions Chest CTA 03/23/24 21:52 EXAM: CT angio chest PE protocol CLINICAL HISTORY: EMS reports that pt was seen discharged today from hospital ([facility]) for right leg pain and cellulitis. EMS reports pt had increased leg pain when calling the ambulance later today and on the way here reported some "chest pressure" but then pointed to his lower abdomen. pt is denying chest pressure at this moment. pt has no cardiac hx 94 ml opti 320 PW TECHNIQUE: Contiguous axial images were obtained from the neck base through the upper abdomen following intravenous administration of iodinated contrast material. Angiographic images were processed, 3D MIP images were acquired for interpretation. If IV contrast material had not been administered, the likelihood of detecting abnormalities relevant to the patient's condition would have been substantially decreased. Coronal and sagittal 3-D MIPs were likewise performed and indicated to increase the sensitivity of detecting diffuse clinically relevant pathology. CT scan was performed according to ALARA (as low as reasonably achievable). COMPARISON: None. FINDINGS: Adequate contrast bolus without evidence of pulmonary embolism. 14 x 9 mm nodule is noted in the posterior basal segment of the right lower lobe. Positional ground glass densities with subtle interstitial thickening are seen involving the dependent portions of bilateral lower lobes. Few patchy areas of ground-glass densities with interstitial thickening also noted involving anterior segments of bilateral upper lobes, more on left side No pleural effusion. No pericardial effusion is identified. The central airways are patent. Cardiomegaly seen. There are no appreciable coronary artery and aortic atherosclerotic calcifications. No mediastinal, hilar, or axillary lymphadenopathy is noted. The visualized portion of the thyroid is unremarkable. No suspicious lytic or sclerotic osseous lesions are identified. Degenerative changes are noted in the visualized spine. Old fractures of left 6th 7th and 8th ribs is noted. IMPRESSION: 1. No evidence of pulmonary embolism. 2. 14 x 9 mm nodule is noted in the posterior basal segment of the right lower lobe. No suspicious features of malignancy in the current study. Correlation with prior scan / follow up is advised as per Fleischner guidelines. 3. Cardiomegaly. 4. Positional ground glass densities with subtle interstitial thickening are seen involving the dependent portions of bilateral lower lobes. 5. Few patchy areas of ground-glass densities with interstitial thickening also noted involving anterior segments of bilateral upper lobes, more on left side. Non-specific vs infective. Suggested clinical/lab correlation. Electronically signed by Ebenezer Rodriguez 03-24-2024 12:57 AM Chest X-Ray 03/23/24 21:52 Exam(s): XR CXR 1 VIEW EXAM: XR Chest, 1 View CLINICAL HISTORY: Reason for exam: Chest pain, nonspecific. TECHNIQUE: Frontal view of the chest. COMPARISON: 03/13/24 FINDINGS: Lungs: Unremarkable. No consolidation. Pleural space: Unremarkable. No pleural effusion or pneumothorax. Heart: Stable heart size. Bones/joints: No acute fracture. No dislocation. Tubes, lines and devices: Loop recorder projects over the left chest. IMPRESSION: No acute findings in the chest. Electronically signed by: Krzysztof Washington M.D. 03/23/24 23:31 PM Diagnostic Findings EKG as per my interpretation : Rate 85, NSR, normal axis, T wave flattening inferior leads
[2024-03-24] MEDS ORDERED: PROMETHAZINE 12.5 MG/50.5 ML BAG IV PRN (01:49)
[2024-03-24] MEDS ORDERED: ACETAMINOPHEN 325 MG TAB PO PRN (01:49)
[2024-03-24 01:53] LABS: Thyroid Stimulating Hormone 0.672 uIu/ml (0.300-4.500)
[2024-03-24] MEDS: METOPROLOL TARTRATE 1 MG/ML VIAL IV STA (02:04)
[2024-03-24] MEDS: ALBUT/IPRATROP 3MG/0.5MG NEB 3 ML VIAL NEB STA (02:04)
[2024-03-24 02:39] LABS: Partial Thromboplastin Ratio 1.3; Partial Thromboplastin Time 34 Seconds (21-31)
[2024-03-24] MEDS: DOXYCYCLINE HYCLATE 100 MG in DEXTROSE 5% MINI-B 100 ML IV STA (02:45)
[2024-03-24] MEDS ORDERED: CARBOHYDRATES FOR HYPOGLYCEMIA PO PRN (02:48)
[2024-03-24] MEDS ORDERED: GLUCOSE 40% GEL 15 GM TUBE PO PRN (02:48)
[2024-03-24] MEDS ORDERED: GLUCOSE 10 TAB/TUBE PO PRN (02:48)
[2024-03-24] MEDS ORDERED: GLUCAGON FOR INJ 1 MG VIAL SQ PRN (02:48)
[2024-03-24] MEDS ORDERED: DEXTROSE 50% 50 ML SYRINGE IV PRN (02:48)
[2024-03-24 03:05] LABS: Adenovirus PCR Not Detected (NotDetected); Bordetella parapertussis PCR Not Detected (NotDetected); Bordetella pertussis PCR Not Detected (NotDetected); Chlamydia pneumoniae PCR Not Detected (NotDetected); Coronavirus 229E PCR Not Detected (NotDetected); Coronavirus CoV-2 (COVID19)PCR Not Detected (NotDetected); Coronavirus HKU1 PCR Not Detected (NotDetected); Coronavirus NL63 PCR Not Detected (NotDetected); Coronavirus OC43PCR Not Detected (NotDetected); Human Metapneumovirus PCR Not Detected (NotDetected); Influenza A PCR Not Detected (NotDetected); Influenza B PCR Not Detected (NotDetected); Mycoplasma pneumoniae PCR Not Detected (NotDetected); Parainfluenza Virus 1 PCR Not Detected (NotDetected); Parainfluenza Virus 2 PCR Not Detected (NotDetected); Parainfluenza Virus 3 PCR Not Detected (NotDetected); Parainfluenza Virus 4 PCR Not Detected (NotDetected); Respiratory Syncytial VirusPCR Not Detected (NotDetected); Rhinovirus/Enterovirus PCR Not Detected (NotDetected)
--- NOTE | 2024-03-24 03:22 | Ultrasound Report ---
EXAM: US venous doppler LE BI CLINICAL HISTORY: Swelling, ? DVT B/L groin nodes seen: lgst on RT = 4.1 x 1.7 x 1.1 cm, lgst on LT = 3.0 x 1.4 x 0.7 cm. Difficult vis of calf vessels B/L due to edema. No definite RLE or LLE DVT detected. TECHNIQUE: Ultrasound examination of bilateral lower extremity veins was performed in real time and duplex. One or more of the following were performed- spectral analysis, resistive index, waveform analysis, and pulsed Doppler. COMPARISON: comparison with previous study dated 03/13/2024 FINDINGS: Right calf subcutaneous edema with echogenic fat which may suggest early cellulitis. Normal phasic, non-pulsatile and spontaneous flow is noted in the bilateral common femoral, bilateral superficial femoral, and bilateral popliteal. Visualized veins of both lower extremities demonstrate normal compressibility. No sonographic evidence of acute deep vein thrombosis (DVT) is detected in the rest of the visualized veins of both lower extremities. Compression and Augmentation: The evaluated veins compress fully with applied transducer pressure. Augmentation of venous flow is noted with distal compression. Additional Findings: Bilateral enlarged inguinal LNs largest on the right side measures 4 x 1.7 x1.4 cm and on the left side measures 3 x 1.4 x 0.7 cm. IMPRESSION: 1. Right calf subcutaneous edema with slightly echogenic fat suggesting of early cellulitis. 2. Enlarged inguinal LNs as described. 3. No DVT detected. Disclaimer: DVT could be missed early in the disease when clot burden is minimal. For patients with moderate and high pretest probability of DVT and negative ultrasound, the [employer] clinical guidelines recommend testing with a D-dimer assay or repeat ultrasound in 5-7 days. If symptoms worsen, the Society of radiologists in ultrasound recommends repeating ultrasound even earlier. Electronically signed by Benji Zabala 03-24-2024 03:22 AM
[2024-03-24 03:31] LABS: Appearance Urine Clear (Clear); Bilirubin Urine Negative (Negative); Blood Urine Negative (Negative); Color Urine Yellow; Glucose Urine UA Negative (Negative); Ketones Urine Negative (Negative); Leukocyte Esterase Urine Negative (Negative); Nitrite Urine Negative (Negative); Protein Urine Negative (Negative); Specific Gravity Urine > 1.045 (1.000-1.030); Urobilinogen Urine Negative (Negative)
[2024-03-24] MEDS: oxyCODONE HCL IR 5 MG TAB (IMMEDIATE RELEASE) PO PRN (03:35)
[2024-03-24] MEDS: MAGNESIUM SULFATE / D5W 1 GM/100 ML BAG IV STA (03:37)
[2024-03-24] MEDS ORDERED: hydrOXYzine HCl 25 MG TAB PO PRN (04:04)
[2024-03-24] MEDS ORDERED: valACYclovir HCL 500 MG TABLET PO SCH (04:15)
[2024-03-24] MEDS: INSULIN ASPART PER UNIT CHARGE SC SCH (04:30)
[2024-03-24 04:44] LABS: BUN Creatinine Ratio 16.7 (10-20); Basophils # (auto) 0.03 K/uL (0.00-0.20); Basophils % (auto) 0.4 %; Calcium 9.2 mg/dl (8.6-10.3); Creatinine Clr Calc Pharmacy 165.2 ml/min; Eosinophils # (auto) 0.26 K/uL (0.00-0.50); Eosinophils % (auto) 3.2 %; Hematocrit (blood only) 37.6 % (42.0-52.0); Hemoglobin 12.9 g/dl (14.0-18.0); Immature Granulocytes # (auto) 0.09 K/uL (0.01-0.20); Immature Granulocytes % (auto) 1.1 %; Lymphocytes # (auto) 1.52 K/uL (1.20-3.40); Lymphocytes % (auto) 18.8 %; Mean Corpuscular Hemoglobin 32.7 pg (25.0-34.0); Mean Corpuscular Hgb Conc 34.3 g/dL (32.0-36.0); Mean Corpuscular Volume 95.4 fL (80.0-100.0); Mean Platelet Volume 10.3 fL (9.4-12.4); Monocytes # (auto) 1.23 K/uL (0.11-0.59); Monocytes % (auto) 15.2 %; Neutrophils # (auto) 4.97 K/uL (1.40-6.50); Neutrophils % (auto) 61.3 %; Platelet Count 274 K/uL (130-400); Potassium 4.4 mmol/L (3.5-5.1); RDW Coefficient of Variation 13.9 % (11.5-14.5); RDW Standard Deviation 48.6 fL (36.4-46.3); Red Blood Count 3.94 M/uL (4.70-6.10)
[2024-03-24] MEDS: ALBUMIN 25% 12.5 GM/50 ML VIAL IV ONE (05:58)
[2024-03-24] MEDS: ATORVASTATIN 40 MG TAB PO SCH (08:37)
[2024-03-24] MEDS: APIXABAN 5 MG TABLET PO SCH (08:37)
[2024-03-24] MEDS: cloNIDine HCL 0.1 MG TAB PO SCH (08:37)
[2024-03-24] MEDS: DIVALPROEX DELAY RELEASE 250 MG TABEC PO SCH (08:37)
[2024-03-24] MEDS: lisinopril 40 MG TAB PO SCH (08:38)
[2024-03-24] MEDS: METOPROLOL SUCC 25MG EXT REL TAB PO SCH (08:38)
[2024-03-24] MEDS: valACYclovir HCL 500 MG TABLET PO SCH (08:38)
[2024-03-24] MEDS: FUROSEMIDE INJ 20 MG/2 ML VIAL IV ONE (08:52)
[2024-03-24] MEDS: MAGNESIUM CHLORIDE W/CALCIUM 64MG DELAYED REL TAB PO SCH (09:04)
--- NOTE | 2024-03-24 15:55 | Communication Note ---
Date of Service: March 24, 2024 evaluated patient at bedside reports BLE worsening of legs with pain States over last 2-3 days worsening, no fevers/chills Exam: nothing both legs with erythematous changes not present last admission, area of blistering healing on RLE where concern for zoster noted (scabbed over) pedal pitting edema noted, tight edema of BLE #RLE cellutitis #BLE edema -discontinue oral abx -Start dapto -s/p IV lasix 20mg, assess response, consider further diuresis contingent on hyponatremia
[2024-03-24] MEDS: COUGH DROP (SUGAR FREE) LOZ 24 LOZ/1 BOX BUCCAL PRN (17:04)
[2024-03-24] MEDS: DAPTOmycin 450 MG in SYRINGE 0 ML IV SCH (17:51)
[2024-03-24] MEDS ORDERED: DOXYCYCLINE HYCLATE 100 MG CAP PO SCH (21:00)
[2024-03-24] MEDS: traZODone HCL 50 MG TAB PO SCH (21:32)
[2024-03-25 09:53] LABS: Basophils # (auto) 0.03 K/uL (0.00-0.20); Basophils % (auto) 0.6 %; Eosinophils # (auto) 0.14 K/uL (0.00-0.50); Eosinophils % (auto) 2.7 %; Hematocrit (blood only) 33.8 % (42.0-52.0); Hemoglobin 11.9 g/dl (14.0-18.0); Immature Granulocytes # (auto) 0.02 K/uL (0.01-0.20); Immature Granulocytes % (auto) 0.4 %; Lymphocytes # (auto) 1.21 K/uL (1.20-3.40); Lymphocytes % (auto) 22.9 %; Mean Corpuscular Hemoglobin 33.4 pg (25.0-34.0); Mean Corpuscular Hgb Conc 35.2 g/dL (32.0-36.0); Mean Corpuscular Volume 94.9 fL (80.0-100.0); Monocytes # (auto) 0.58 K/uL (0.11-0.59); Neutrophils % (auto) 62.4 %; Platelet Count 227 K/uL (130-400); RDW Coefficient of Variation 13.8 % (11.5-14.5); RDW Standard Deviation 48.1 fL (36.4-46.3); Red Blood Count 3.56 M/uL (4.70-6.10); White Blood Count 5.28 K/ul (4.8-10.8)
[2024-03-25 10:10] LABS: BUN Creatinine Ratio 24.3 (10-20); Calcium 8.8 mg/dl (8.6-10.3); Creatinine Clr Calc Pharmacy 169.9 ml/min; Potassium 4.5 mmol/L (3.5-5.1)
--- NOTE | 2024-03-25 14:52 | Hospitalist Progress Note ---
Date of Service March 25, 2024 Assessment & Plan (1) Cellulitis: Plan Pt is a 59yoM with PMHx significant for A-fib on Eliquis, CVA, hypertension, hyperlipidemia, COPD, DM2 on oral medications, hyperprolactinemia as per records chronic hyponatremia, hemochromatosis as per records, chronic anemia (baseline hemoglobin 12-13), seizure disorder, history of traumatic brain injury, mood disorder, paranoid schizophrenia/schizoaffective disorder, BPH presenting with right lower extremity cellulitis. RLE Cellulitis Pt presenting with erythema and swelling of lower extremities R>L Venous doppler noting "Right calf subcutaneous edema with slightly echogenic fat suggesting of early cellulitis." but no DVT CT lower extremity noting "Nonspecific cutaneous thickening of the lower leg with moderate subcutaneous edema. Differential considerations include cellulitis, venous stasis or lymphedema." Will start on IV Lasix 20mg daily Continue IV Daptomycin Started on amlactin Wound nurse consult Continue to monitor Acute on Chronic hyponatremia Na 13 on admission Held home HCTZ, d/c on discharge Continue to monitor Shingles Continue Valtrex treatment Hypertensive urgency BP elevated on admission Continue lisinopril 40mg daily Continue metoprolol succinate 25mg daily Continue to monitor Hx of atrial fibrillation Continue Toprol and Eliquis DMII Continue ISS AM [id number] Continue other home meds as ordered Diet: DMII, HH DVT prophylaxis: On Eliquis 5mg BID Dispo:PT/OT ordered for further recs Admission and Anticipated Discharge Date Admission Date: March 24, 2024 Subjective Patient was seen laying in bed. Denied any fevers chills or night sweats Lower extremities with noted erythema and swelling. Denies any associated pain. Review of Systems Review of Systems: All systems reviewed & are unremarkable except as noted in Subjective Physical Exam Physical Exam: General: Alert, oriented. No acute distress Skin: No noted rashes or bruises Psych: Appropriate mood and affect HEENT: NC/AT Chest: Nontender to palpation. CV: RRR Resp: Breath sounds clear bilaterally, no increased effort of breathing. Abdomen: soft, nontender, nondistended. No guarding. No organomegaly appreciated. Extremities: edema and erythema to lower extremities bilaterally. Results & Data Results & Data Vital Signs (Past 12 Hours) Vital Signs Temp Pulse Pulse Pulse Resp BP Pulse Ox 03/25/24 11:33 36.5 C 57 L 16 115/79 96 03/25/24 08:30 69 03/25/24 07:37 03/25/24 07:36 36.4 C L 75 16 139/84 93 03/25/24 03:38 36.6 C 76 20 136/84 92 03/25/24 03:00 Pulse Ox O2 Del Method O2 Del Method 03/25/24 11:33 Room Air 03/25/24 08:30 03/25/24 07:37 Room Air 03/25/24 07:36 Room Air 03/25/24 03:38 Room Air 03/25/24 03:00 92 Room Air Diagnostic Findings Chest CTA 03/23/24 21:52 EXAM: CT angio chest PE protocol CLINICAL HISTORY: EMS reports that pt was seen discharged today from hospital ([facility]) for right leg pain and cellulitis. EMS reports pt had increased leg pain when calling the ambulance later today and on the way here reported some "chest pressure" but then pointed to his lower abdomen. pt is denying chest pressure at this moment. pt has no cardiac hx 94 ml opti 320 PW TECHNIQUE: Contiguous axial images were obtained from the neck base through the upper abdomen following intravenous administration of iodinated contrast material. Angiographic images were processed, 3D MIP images were acquired for interpretation. If IV contrast material had not been administered, the likelihood of detecting abnormalities relevant to the patient's condition would have been substantially decreased. Coronal and sagittal 3-D MIPs were likewise performed and indicated to increase the sensitivity of detecting diffuse clinically relevant pathology. CT scan was performed according to ALARA (as low as reasonably achievable). COMPARISON: None. FINDINGS: Adequate contrast bolus without evidence of pulmonary embolism. 14 x 9 mm nodule is noted in the posterior basal segment of the right lower lobe. Positional ground glass densities with subtle interstitial thickening are seen involving the dependent portions of bilateral lower lobes. Few patchy areas of ground-glass densities with interstitial thickening also noted involving anterior segments of bilateral upper lobes, more on left side No pleural effusion. No pericardial effusion is identified. The central airways are patent. Cardiomegaly seen. There are no appreciable coronary artery and aortic atherosclerotic calcifications. No mediastinal, hilar, or axillary lymphadenopathy is noted. The visualized portion of the thyroid is unremarkable. No suspicious lytic or sclerotic osseous lesions are identified. Degenerative changes are noted in the visualized spine. Old fractures of left 6th 7th and 8th ribs is noted. IMPRESSION: 1. No evidence of pulmonary embolism. 2. 14 x 9 mm nodule is noted in the posterior basal segment of the right lower lobe. No suspicious features of malignancy in the current study. Correlation with prior scan / follow up is advised as per Fleischner guidelines. 3. Cardiomegaly. 4. Positional ground glass densities with subtle interstitial thickening are seen involving the dependent portions of bilateral lower lobes. 5. Few patchy areas of ground-glass densities with interstitial thickening also noted involving anterior segments of bilateral upper lobes, more on left side. Non-specific vs infective. Suggested clinical/lab correlation. Electronically signed by Ebenezer Rodriguez 03-24-2024 12:57 AM Chest X-Ray 03/23/24 21:52 Exam(s): XR CXR 1 VIEW EXAM: XR Chest, 1 View CLINICAL HISTORY: Reason for exam: Chest pain, nonspecific. TECHNIQUE: Frontal view of the chest. COMPARISON: 03/13/24 FINDINGS: Lungs: Unremarkable. No consolidation. Pleural space: Unremarkable. No pleural effusion or pneumothorax. Heart: Stable heart size. Bones/joints: No acute fracture. No dislocation. Tubes, lines and devices: Loop recorder projects over the left chest. IMPRESSION: No acute findings in the chest. Electronically signed by: Krzysztof Washington M.D. 03/23/24 23:31 PM Venous Doppler Study 03/24/24 00:00 EXAM: US venous doppler LE CLINICAL HISTORY: Swelling, ? DVT B/L groin nodes seen: lgst on RT = 4.1 x 1.7 x 1.1 cm, lgst on LT = 3.0 x 1.4 x 0.7 cm. Difficult vis of calf vessels B/L due to edema. No definite RLE or LLE DVT detected. TECHNIQUE: Ultrasound examination of bilateral lower extremity veins was performed in real time and duplex. One or more of the following were performed- spectral analysis, resistive index, waveform analysis, and pulsed Doppler. COMPARISON: comparison with previous study dated 03/13/2024 FINDINGS: Right calf subcutaneous edema with echogenic fat which may suggest early cellulitis. Normal phasic, non-pulsatile and spontaneous flow is noted in the bilateral common femoral, bilateral superficial femoral, and bilateral popliteal. Visualized veins of both lower extremities demonstrate normal compressibility. No sonographic evidence of acute deep vein thrombosis (DVT) is detected in the rest of the visualized veins of both lower extremities. Compression and Augmentation: The evaluated veins compress fully with applied transducer pressure. Augmentation of venous flow is noted with distal compression. Additional Findings: Bilateral enlarged inguinal LNs largest on the right side measures 4 x 1.7 x1.4 cm and on the left side measures 3 x 1.4 x 0.7 cm. IMPRESSION: 1. Right calf subcutaneous edema with slightly echogenic fat suggesting of early cellulitis. 2. Enlarged inguinal LNs as described. 3. No DVT detected. Disclaimer: DVT could be missed early in the disease when clot burden is minimal. For patients with moderate and high pretest probability of DVT and negative ultrasound, the [employer] clinical guidelines recommend testing with a D-dimer assay or repeat ultrasound in 5-7 days. If symptoms worsen, the Society of radiologists in ultrasound recommends repeating ultrasound even earlier. Electronically signed by Benji Zabala 03-24-2024 03:22 AM
[2024-03-25] MEDS: AMMONIUM LACTATE 12% LOTION 225 GM BTL EXT SCH (19:52)
[2024-03-26 07:40] LABS: Basophils # (auto) 0.04 K/uL (0.00-0.20); Basophils % (auto) 0.8 %; Eosinophils # (auto) 0.19 K/uL (0.00-0.50); Eosinophils % (auto) 3.8 %; Hematocrit (blood only) 35.5 % (42.0-52.0); Hemoglobin 12.3 g/dl (14.0-18.0); Immature Granulocytes # (auto) 0.04 K/uL (0.01-0.20); Immature Granulocytes % (auto) 0.8 %; Lymphocytes # (auto) 1.46 K/uL (1.20-3.40); Lymphocytes % (auto) 29.6 %; Mean Corpuscular Hemoglobin 32.6 pg (25.0-34.0); Mean Corpuscular Hgb Conc 34.6 g/dL (32.0-36.0); Mean Corpuscular Volume 94.2 fL (80.0-100.0); Mean Platelet Volume 9.2 fL (9.4-12.4); Monocytes # (auto) 0.64 K/uL (0.11-0.59); Neutrophils # (auto) 2.57 K/uL (1.40-6.50); Platelet Count 241 K/uL (130-400); RDW Coefficient of Variation 13.4 % (11.5-14.5); RDW Standard Deviation 45.9 fL (36.4-46.3); Red Blood Count 3.77 M/uL (4.70-6.10); White Blood Count 4.94 K/ul (4.8-10.8)
[2024-03-26 07:58] LABS: Estimated Average Glucose 123 mg/dl; Hemoglobin A1C 5.9 % (4.5-5.6)
[2024-03-26 08:03] LABS: Anion Gap 4 (3-11); BUN Creatinine Ratio 21.7 (10-20); Blood Urea Nitrogen 15 mg/dl (6-23); Calcium 8.6 mg/dl (8.6-10.3); Carbon Dioxide 28 mmol/L (21-32); Chloride 95 mmol/L (98-107); Creatinine Clr Calc Pharmacy 171.6 ml/min; Glucose 92 mg/dl (70-99(Fasting)); Magnesium 1.6 mg/dl (1.7-2.4); Sodium 127 mmol/L (136-145)
[2024-03-26] MEDS: QUEtiapine FUMARATE 100 MG TABLET PO PRN (08:27)
[2024-03-26] MEDS: FUROSEMIDE INJ 20 MG/2 ML VIAL IV SCH (08:30)
--- NOTE | 2024-03-26 11:35 | Nephrology Consultation ---
Date of Consultation March 26, 2024 Assessment & Plan (1) Hyponatremia: he has had Somewhat low na but was on HCTZ so have to assume that would be the cause. urine tests still affected by HCTZ so cannot totally rely on that. On exam he has a lot of edema. on lasix 20 but we need to try a much higher dose to see if it makes any difference. renal function normal. Not sure he actually was taking HCTZ pre admission--he is hard to understand !! will do urine osm and urine na today. Increase lasix to 40 iv q8hr. Plus KCL 20 bid. Renal panel in AM. will follow. He can never be on HCTZ or other thiazides. He will be discharged on loop diuretics (2) Cellulitis: on Abx --Daptomicin currently. History of Present Illness Reason for Consultation: Hyponatremia Attending Physician: Melissa Jin MD History of Present Illness 59/M Admitted 2 days ago with Rt LE Cellulitis. DVT and PE ruled out. Does have lot of edema b/l chronic but was worse recently with redness also. he has Open Ulcers and wounds b/l in LE. he has A-fib on Eliquis, CVA, hypertension, hyperlipidemia, COPD, DM2 on oral medications, hyperprolactinemia as per records chronic hyponatremia ( recent na in low 130's) chronic anemia (baseline hemoglobin 12-13), seizure disorder, history of traumatic brain injury, mood disorder, paranoid schizophrenia/schizoaffective disorder, BPH, ongoing tobacco abuse. he lives in [place] [facility] and hard to get history. Recent Admission 2 weeks ago for herpes zoster dermatitis presenting as RLE swelling with clear yellow fluid drainage. Concern for possible herpes zoster with secondary bacterial infection. Wound CS grew Staphylococcus. Patient discharged on Bactrim and Valtrex. Initial improvement of swelling following discharge but then started severe worsening of RLE swelling. No chest pain or unusual shortness of breath. Chronic cough symptoms productive of white sputum. Patient seen at PCPs first and subsequently directed to ER. Vancomycin and ceftriaxone administered at the ER. Since admission HCTZ was stopped but Na Still dropping and is 127 today. renal function normal. ROS--See HPI. 12 Systems otherwise negative. Physical Exam Physical Exam: GENERAL: Comfortable, obese, no respiratory distress SKIN: Pallor , warm NECK : Supple, short neck,No JVD CHEST : Decreased breath sounds, scattered expiratory wheezes, no tenderness HEART : RRR, no murmurs ABDOMEN: Soft Obese nontender EXTREMITIES : Tender and red RLE induration with multiple skin lesions. Left LE also has edema and redness Allergies Allergy/AdvReac Type Severity Reaction Status Date / Time latex Allergy Severe Burning Unverified 03/13/24 16:36 Rash Latex, Natural Rubber Allergy Severe Burning Unverified 03/13/24 16:36 Rash rivaroxaban [From Xarelto] Allergy Unknown Verified 03/24/24 03:54 tamsulosin Allergy Rash Unverified 03/13/24 16:43 losartan AdvReac Hypertensio Verified 03/24/24 03:54 n warfarin AdvReac Unknown Verified 03/13/24 16:36 Home Medications Medication Instructions Recorded Confirmed Type apixaban 5 mg tablet (Eliquis) 5 mg PO BID 03/13/24 03/24/24 History atorvastatin 40 mg tablet 40 mg PO DAILY 03/13/24 03/24/24 History carbamazepine 200 mg tablet 250 mg PO TID 03/13/24 03/24/24 History clonidine HCl 0.1 mg tablet 0.1 mg PO TID 03/13/24 03/24/24 History divalproex 250 mg tablet,delayed 750 mg PO BID 03/13/24 03/24/24 History release hydrochlorothiazide 12.5 mg tablet 12.5 mg PO DAILY 03/13/24 03/24/24 History hydroxyzine HCl 50 mg tablet 50 mg PO QID PRN Anxiety 03/13/24 03/24/24 History lisinopril 40 mg tablet 40 mg PO DAILY 03/13/24 03/24/24 History metoprolol succinate 25 mg 25 mg PO DAILY 03/13/24 03/24/24 History tablet,extended release 24 hr paliperidone palmitate 234 mg/1.5 234 mg IM Q4WK 03/13/24 03/24/24 History mL intramuscular syringe (Invega Sustenna) quetiapine 100 mg tablet (Seroquel) 100 mg PO Q6H PRN Agitation 03/13/24 03/24/24 History risankizumab-rzaa 150 mg/mL 150 mg subcut UD 03/13/24 03/24/24 History subcutaneous syringe (Melvinayrizi) trazodone 150 mg tablet 75 mg PO HS 03/13/24 03/24/24 History triamcinolone acetonide 0.1 % 1 applic topical 2XD 03/13/24 03/24/24 History topical cream sulfamethoxazole 800 1 tab PO BID 03/24/24 03/24/24 History mg-trimethoprim 160 mg tablet (Bactrim DS) valacyclovir 500 mg tablet 1,000 mg PO 3XD 03/24/24 03/24/24 History Patient History Surgical History Hx of tonsillectomy H/O foot surgery reports history Left foot fracture Family History Other Diabetes Dyslipidemia Hypertension Social History Smoking Status: Current every day smoker Tobacco Type: Cigarettes Cigarettes Per Day: 3/4 pack a day; Hx Alcohol Use: No Hx Substance Use: No Preferred Language: Persian Communication Ability: Effective Employer Relations Representative Required: No Beliefs That Will Affect Care: None Current Living Situation: Boarding Home Current Living Situation Comment: [facility] Feels Safe at Home: Hesitant to Answer Safety Concerns: Feels Safe At This Time Assistive Devices: None Assistive Devices Comment: reading glasses Results & Data Vital Signs (Past 12 Hours) Vital Signs Temp Pulse Pulse Resp BP BP Pulse Ox 03/26/24 10:26 03/26/24 07:50 36.5 C 61 18 161/96 H 94 03/26/24 03:28 36.4 C L 61 18 153/89 H 92 03/25/24 23:45 36.6 C 69 18 113/68 93 O2 Del Method 03/26/24 10:26 Room Air 03/26/24 07:50 Room Air 03/26/24 03:28 Room Air 03/25/24 23:45 Room Air Laboratory Results reviewed CBC, renal panel and Urine tests Diagnostic Findings CXR, Duplex and CT Angio reviewed
--- NOTE | 2024-03-26 13:04 | Hospitalist Progress Note ---
Date of Service March 26, 2024 Assessment & Plan (1) Cellulitis: Plan Pt is a 59yoM with PMHx significant for A-fib on Eliquis, CVA, hypertension, hyperlipidemia, COPD, DM2 on oral medications, hyperprolactinemia as per records chronic hyponatremia, hemochromatosis as per records, chronic anemia (baseline hemoglobin 12-13), seizure disorder, history of traumatic brain injury, mood disorder, paranoid schizophrenia/schizoaffective disorder, BPH presenting with right lower extremity cellulitis. RLE Cellulitis Pt presenting with erythema and swelling of lower extremities R>L Venous doppler noting "Right calf subcutaneous edema with slightly echogenic fat suggesting of early cellulitis." but no DVT CT lower extremity noting "Nonspecific cutaneous thickening of the lower leg with moderate subcutaneous edema. Differential considerations include cellulitis, venous stasis or lymphedema." Continue IV Daptomycin Started on amlactin Wound nurse consult Continue to monitor Acute on Chronic hyponatremia Na 130 on admission, downtrended to 127 on 03/26/24 Held home HCTZ, d/c on discharge nephrology consulted, appreciate recs Continue to monitor Lower extremity edema Patient with significant lower extremity edema Nephrology increasing dose of IV Lasix to 40 mg every 8 hours Advises will need discharge with p.o. loop diuretic Continue to monitor Shingles Continue Valtrex treatment Wheezing patient with noted wheezing on exam Chest x-ray unremarkable No increased oxygen requirement at this time DuoNebs scheduled at this time Continue to monitor consider repeating imaging if persistent Hypertensive urgency BP elevated on admission Continue lisinopril 40mg daily Continue metoprolol succinate 25mg daily Continue to monitor Hx of atrial fibrillation Continue Toprol and Eliquis DMII Continue ISS hgba1c of 5.9 Continue other home meds as ordered Diet: DMII, HH DVT prophylaxis: On Eliquis 5mg BID Dispo:PT/OT ordered for further recs, pt from a boarding house Admission and Anticipated Discharge Date Admission Date: March 24, 2024 Subjective patient was seen sitting up in bed watching TV Denied acute concerns No acute overnight events Review of Systems Review of Systems: All systems reviewed & are unremarkable except as noted in Subjective Physical Exam Physical Exam: General: Alert, oriented. No acute distress Skin: No noted rashes or bruises Psych: Appropriate mood and affect HEENT: NC/AT Chest: Nontender to palpation. CV: RRR Resp: Breath sounds clear bilaterally, no increased effort of breathing. Abdomen: soft, nontender, nondistended. No guarding. No organomegaly appreciated. Extremities: edema and erythema to lower extremities bilaterally. Results & Data Results & Data Vital Signs (Past 12 Hours) Vital Signs Temp Pulse Pulse Resp BP BP Pulse Ox 03/26/24 12:10 36.6 C 60 18 118/76 96 03/26/24 10:26 03/26/24 07:50 36.5 C 61 18 161/96 H 94 03/26/24 03:28 36.4 C L 61 18 153/89 H 92 O2 Del Method 03/26/24 12:10 Room Air 03/26/24 10:26 Room Air 03/26/24 07:50 Room Air 03/26/24 03:28 Room Air Diagnostic Findings Chest CTA 03/23/24 21:52 EXAM: CT angio chest PE protocol CLINICAL HISTORY: EMS reports that pt was seen discharged today from hospital ([facility]) for right leg pain and cellulitis. EMS reports pt had increased leg pain when calling the ambulance later today and on the way here reported some "chest pressure" but then pointed to his lower abdomen. pt is denying chest pressure at this moment. pt has no cardiac hx 94 ml opti 320 PW TECHNIQUE: Contiguous axial images were obtained from the neck base through the upper abdomen following intravenous administration of iodinated contrast material. Angiographic images were processed, 3D MIP images were acquired for interpretation. If IV contrast material had not been administered, the likelihood of detecting abnormalities relevant to the patient's condition would have been substantially decreased. Coronal and sagittal 3-D MIPs were likewise performed and indicated to increase the sensitivity of detecting diffuse clinically relevant pathology. CT scan was performed according to ALARA (as low as reasonably achievable). COMPARISON: None. FINDINGS: Adequate contrast bolus without evidence of pulmonary embolism. 14 x 9 mm nodule is noted in the posterior basal segment of the right lower lobe. Positional ground glass densities with subtle interstitial thickening are seen involving the dependent portions of bilateral lower lobes. Few patchy areas of ground-glass densities with interstitial thickening also noted involving anterior segments of bilateral upper lobes, more on left side No pleural effusion. No pericardial effusion is identified. The central airways are patent. Cardiomegaly seen. There are no appreciable coronary artery and aortic atherosclerotic calcifications. No mediastinal, hilar, or axillary lymphadenopathy is noted. The visualized portion of the thyroid is unremarkable. No suspicious lytic or sclerotic osseous lesions are identified. Degenerative changes are noted in the visualized spine. Old fractures of left 6th 7th and 8th ribs is noted. IMPRESSION: 1. No evidence of pulmonary embolism. 2. 14 x 9 mm nodule is noted in the posterior basal segment of the right lower lobe. No suspicious features of malignancy in the current study. Correlation with prior scan / follow up is advised as per Fleischner guidelines. 3. Cardiomegaly. 4. Positional ground glass densities with subtle interstitial thickening are seen involving the dependent portions of bilateral lower lobes. 5. Few patchy areas of ground-glass densities with interstitial thickening also noted involving anterior segments of bilateral upper lobes, more on left side. Non-specific vs infective. Suggested clinical/lab correlation. Electronically signed by Ebenezer Rodriguez 03-24-2024 12:57 AM Chest X-Ray 03/23/24 21:52 Exam(s): XR CXR 1 VIEW EXAM: XR Chest, 1 View CLINICAL HISTORY: Reason for exam: Chest pain, nonspecific. TECHNIQUE: Frontal view of the chest. COMPARISON: 03/13/24 FINDINGS: Lungs: Unremarkable. No consolidation. Pleural space: Unremarkable. No pleural effusion or pneumothorax. Heart: Stable heart size. Bones/joints: No acute fracture. No dislocation. Tubes, lines and devices: Loop recorder projects over the left chest. IMPRESSION: No acute findings in the chest. Electronically signed by: Krzysztof Washington M.D. 03/23/24 23:31 PM Venous Doppler Study 03/24/24 00:00 EXAM: US venous doppler LE BI CLINICAL HISTORY: Swelling, ? DVT B/L groin nodes seen: lgst on RT = 4.1 x 1.7 x 1.1 cm, lgst on LT = 3.0 x 1.4 x 0.7 cm. Difficult vis of calf vessels B/L due to edema. No definite RLE or LLE DVT detected. TECHNIQUE: Ultrasound examination of bilateral lower extremity veins was performed in real time and duplex. One or more of the following were performed- spectral analysis, resistive index, waveform analysis, and pulsed Doppler. COMPARISON: comparison with previous study dated 03/13/2024 FINDINGS: Right calf subcutaneous edema with echogenic fat which may suggest early cellulitis. Normal phasic, non-pulsatile and spontaneous flow is noted in the bilateral common femoral, bilateral superficial femoral, and bilateral popliteal. Visualized veins of both lower extremities demonstrate normal compressibility. No sonographic evidence of acute deep vein thrombosis (DVT) is detected in the rest of the visualized veins of both lower extremities. Compression and Augmentation: The evaluated veins compress fully with applied transducer pressure. Augmentation of venous flow is noted with distal compression. Additional Findings: Bilateral enlarged inguinal LNs largest on the right side measures 4 x 1.7 x1.4 cm and on the left side measures 3 x 1.4 x 0.7 cm. IMPRESSION: 1. Right calf subcutaneous edema with slightly echogenic fat suggesting of early cellulitis. 2. Enlarged inguinal LNs as described. 3. No DVT detected. Disclaimer: DVT could be missed early in the disease when clot burden is minimal. For patients with moderate and high pretest probability of DVT and negative ultrasound, the [employer] clinical guidelines recommend testing with a D-dimer assay or repeat ultrasound in 5-7 days. If symptoms worsen, the Society of radiologists in ultrasound recommends repeating ultrasound even earlier. Electronically signed by Benji Zabala 03-24-2024 03:22 AM
[2024-03-26] MEDS: POTASSIUM CHLORIDE 20 MEQ/15 ML UDC PO SCH (15:07)
[2024-03-26] MEDS: FUROSEMIDE 40 MG/4 ML VIAL IV SCH (15:16)
--- NOTE | 2024-03-26 16:12 | Electrocardiogram Report ---
Test Reason : Blood Pressure : */* mmHG Vent. Rate : 86 BPM Atrial Rate : 86 BPM P-R Int : 154 ms QRS Dur : 88 ms QT Int : 364 ms P-R-T Axes : 47 43 35 degrees QTcB Int : 435 ms Normal sinus rhythm Diffuse Minor Nonspecific ST abnormality Abnormal ECG When compared with ECG of 13-Mar-2024 12:09, Nonspecific ST abnormality now present Confirmed by Amol Dean ([id number]) on 03/26/2024 4:12:15 PM Referred By: REFERRED SELF Confirmed By: Amol Dean
[2024-03-26 16:40] LABS: Appearance Urine Clear (Clear); Bacteria Urine Automated None Seen (None Seen); Bilirubin Urine Negative (Negative); Blood Urine Negative (Negative); Cast Urine Automated 0-2 /lpf (0-2); Color Urine Yellow; Epithelial Cell Urine Auto 0-2 /hpf (0-2); Glucose Urine UA Negative (Negative); Ketones Urine Trace (Negative); Leukocyte Esterase Urine Trace (Negative); Nitrite Urine Negative (Negative); Protein Urine Negative (Negative); RBC Urine Automated 0-2 /hpf (0-2); Specific Gravity Urine 1.021 (1.000-1.030); Urobilinogen Urine Negative (Negative); WBC Urine Automated 0-5 /hpf (0-5)
[2024-03-26 17:06] LABS: Creatinine Urine Random 136.4 mg/dl
[2024-03-26] MEDS: ALBUT/IPRATROP 3MG/0.5MG NEB 3 ML VIAL NEB SCH (20:00)
[2024-03-27 07:10] LABS: Basophils # (auto) 0.04 K/uL (0.00-0.20); Basophils % (auto) 0.8 %; Eosinophils # (auto) 0.15 K/uL (0.00-0.50); Hematocrit (blood only) 35.8 % (42.0-52.0); Hemoglobin 12.4 g/dl (14.0-18.0); Immature Granulocytes # (auto) 0.04 K/uL (0.01-0.20); Immature Granulocytes % (auto) 0.8 %; Lymphocytes # (auto) 1.08 K/uL (1.20-3.40); Lymphocytes % (auto) 21.9 %; Mean Corpuscular Hemoglobin 32.9 pg (25.0-34.0); Mean Corpuscular Hgb Conc 34.6 g/dL (32.0-36.0); Mean Platelet Volume 9.2 fL (9.4-12.4); Monocytes # (auto) 0.53 K/uL (0.11-0.59); Monocytes % (auto) 10.7 %; Neutrophils % (auto) 62.8 %; Platelet Count 247 K/uL (130-400); RDW Coefficient of Variation 13.7 % (11.5-14.5); RDW Standard Deviation 47.2 fL (36.4-46.3); Red Blood Count 3.77 M/uL (4.70-6.10); White Blood Count 4.94 K/ul (4.8-10.8)
[2024-03-27 07:26] LABS: Magnesium 1.6 mg/dl (1.7-2.4); Potassium 4.4 mmol/L (3.5-5.1)
[2024-03-27 07:32] LABS: BUN Creatinine Ratio 27.3 (10-20); Creatinine Clr Calc Pharmacy 152.9 ml/min; Phosphorus 3.4 mg/dl (2.5-4.9)
[2024-03-27] MEDS: MAGNESIUM CHLORIDE W/CALCIUM 64MG DELAYED REL TAB PO SCH (08:32)
--- NOTE | 2024-03-27 09:24 | Nephrology Progress Note ---
Date of Service March 27, 2024 Assessment & Plan Admission and Anticipated Discharge Date Admission Date: March 24, 2024 Subjective Assessment & Plan (1) Hyponatremia: he has had Somewhat low na but was on HCTZ so have to assume that would be the cause. urine tests still affected by HCTZ so cannot totally rely on that. On exam he has a lot of edema. on lasix 20 but we need to try a much higher dose to see if it makes any difference. renal function normal. Not sure he actually was taking HCTZ pre admission--he is hard to understand !! urine osm 592 and urine na 45 yesterday. On exam very edematous so essentially will manage him as Hypervolemic Hyponatremia. Na was dropping every day but after lasix raised a lot it went up from 127 to 130 so will continue same. renal panel is normal as of now. . Continue lasix 40 iv q8hr. Plus KCL 20 bid. Renal panel in AM. will follow. He can never be on HCTZ or other thiazides. He will be discharged on loop diuretics (2) Cellulitis: on Abx --Daptomicin currently. S--hard to understand. na is better. Massive edema and redness. Physical Exam Physical Exam: GENERAL: Comfortable, obese, no respiratory distress SKIN: Pallor , warm NECK : Supple, short neck,No JVD CHEST : Decreased breath sounds, scattered expiratory wheezes, no tenderness HEART : RRR, no murmurs ABDOMEN: Soft Obese nontender EXTREMITIES : Tender and red RLE induration with multiple skin lesions. Left LE also has edema and redness Results & Data Vital Signs (Past 12 Hours) Vital Signs Temp Pulse Pulse Pulse Resp BP BP 03/27/24 08:23 67 03/27/24 08:12 36.4 C L 58 L 18 137/86 03/27/24 07:21 62 03/27/24 07:03 70 18 03/27/24 03:10 36.4 C L 60 16 134/85 03/27/24 00:10 64 18 03/26/24 23:14 36.5 C 54 L 22 160/107 H 03/26/24 21:55 54 L Pulse Ox O2 Del Method 03/27/24 08:23 03/27/24 08:12 90 Room Air 03/27/24 07:21 11/15/24 07:03 92 Room Air 03/27/24 03:10 93 Room Air 03/27/24 00:10 90 Room Air 03/26/24 23:14 94 Room Air 03/26/24 21:55
--- NOTE | 2024-03-27 12:00 | Hospitalist Progress Note ---
Date of Service March 27, 2024 Assessment & Plan (1) Cellulitis: Plan Pt is a 59yoM with PMHx significant for A-fib on Eliquis, CVA, hypertension, hyperlipidemia, COPD, DM2 on oral medications, hyperprolactinemia as per records chronic hyponatremia, hemochromatosis as per records, chronic anemia (baseline hemoglobin 12-13), seizure disorder, history of traumatic brain injury, mood disorder, paranoid schizophrenia/schizoaffective disorder, BPH presenting with right lower extremity cellulitis. RLE Cellulitis Pt presenting with erythema and swelling of lower extremities R>L Venous doppler noting "Right calf subcutaneous edema with slightly echogenic fat suggesting of early cellulitis." but no DVT CT lower extremity noting "Nonspecific cutaneous thickening of the lower leg with moderate subcutaneous edema. Differential considerations include cellulitis, venous stasis or lymphedema." Continue IV Daptomycin Started on amlactin Wound nurse consult Continue to monitor Acute on Chronic hyponatremia Na 130 on admission, downtrended to 127 on 03/26/24 Held home HCTZ, d/c on discharge nephrology consulted, appreciate recs Continue to monitor Lower extremity edema Patient with significant lower extremity edema Nephrology increasing dose of IV Lasix to 40 mg every 8 hours Advises will need discharge with p.o. loop diuretic Continue to monitor Shingles Continue Valtrex treatment Wheezing patient with noted wheezing on exam Chest x-ray unremarkable No increased oxygen requirement at this time DuoNebs scheduled at this time Continue to monitor consider repeating imaging if persistent Hypertensive urgency BP elevated on admission Continue lisinopril 40mg daily Continue metoprolol succinate 25mg daily Continue to monitor Hx of atrial fibrillation Continue Toprol and Eliquis DMII Continue ISS hgba1c of 5.9 Continue other home meds as ordered Diet: DMII, HH DVT prophylaxis: On Eliquis 5mg BID Dispo:PT/OT ordered for further recs, pt from a boarding house Admission and Anticipated Discharge Date Admission Date: March 24, 2024 Subjective patient was seen sitting up in bed Notes that the lower extremity edema had been improving as well as the redness Review of Systems Review of Systems: All systems reviewed & are unremarkable except as noted in Subjective Physical Exam Physical Exam: General: Alert, oriented. No acute distress Skin: No noted rashes or bruises Psych: Appropriate mood and affect HEENT: NC/AT Chest: Nontender to palpation. CV: RRR Resp: Breath sounds clear bilaterally, no increased effort of breathing. Abdomen: soft, nontender, nondistended. No guarding. No organomegaly appreciated. Extremities: edema and erythema to lower extremities bilaterally. Results & Data Results & Data Vital Signs (Past 12 Hours) Vital Signs Temp Pulse Pulse Pulse Resp BP Pulse Ox 03/27/24 11:36 36.3 C L 67 18 149/81 H 91 03/27/24 10:54 03/27/24 08:23 67 03/27/24 08:12 36.4 C L 58 L 18 137/86 90 03/27/24 07:21 62 03/27/24 07:03 70 18 92 03/27/24 03:10 36.4 C L 60 16 134/85 93 03/27/24 00:10 64 18 90 O2 Del Method 03/27/24 11:36 Room Air 03/27/24 10:54 Room Air 03/27/24 08:23 03/27/24 08:12 Room Air 03/27/24 07:21 03/27/24 07:03 Room Air 03/27/24 03:10 Room Air 03/27/24 00:10 Room Air
[2024-03-28 07:25] LABS: Basophils # (auto) 0.04 K/uL (0.00-0.20); Basophils % (auto) 0.6 %; Eosinophils # (auto) 0.16 K/uL (0.00-0.50); Eosinophils % (auto) 2.6 %; Hematocrit (blood only) 37.5 % (42.0-52.0); Hemoglobin 12.9 g/dl (14.0-18.0); Immature Granulocytes # (auto) 0.04 K/uL (0.01-0.20); Immature Granulocytes % (auto) 0.6 %; Lymphocytes # (auto) 1.54 K/uL (1.20-3.40); Lymphocytes % (auto) 24.9 %; Mean Corpuscular Hemoglobin 32.3 pg (25.0-34.0); Mean Corpuscular Hgb Conc 34.4 g/dL (32.0-36.0); Mean Platelet Volume 9.4 fL (9.4-12.4); Monocytes # (auto) 0.73 K/uL (0.11-0.59); Monocytes % (auto) 11.8 %; Neutrophils # (auto) 3.67 K/uL (1.40-6.50); Neutrophils % (auto) 59.5 %; Platelet Count 258 K/uL (130-400); RDW Coefficient of Variation 13.8 % (11.5-14.5); RDW Standard Deviation 47.4 fL (36.4-46.3); Red Blood Count 3.99 M/uL (4.70-6.10); White Blood Count 6.18 K/ul (4.8-10.8)
[2024-03-28 07:56] LABS: BUN Creatinine Ratio 29.5 (10-20); Calcium 9.1 mg/dl (8.6-10.3); Creatinine Clr Calc Pharmacy 148.6 ml/min; Magnesium 1.8 mg/dl (1.7-2.4); Potassium 4.6 mmol/L (3.5-5.1)
--- NOTE | 2024-03-28 10:58 | Hospitalist Progress Note ---
Date of Service March 28, 2024 Assessment & Plan (1) Cellulitis: Plan Pt is a 59yoM with PMHx significant for A-fib on Eliquis, CVA, hypertension, hyperlipidemia, COPD, DM2 on oral medications, hyperprolactinemia as per records chronic hyponatremia, hemochromatosis as per records, chronic anemia (baseline hemoglobin 12-13), seizure disorder, history of traumatic brain injury, mood disorder, paranoid schizophrenia/schizoaffective disorder, BPH presenting with right lower extremity cellulitis. RLE Cellulitis Pt presenting with erythema and swelling of lower extremities R>L Venous doppler noting "Right calf subcutaneous edema with slightly echogenic fat suggesting of early cellulitis." but no DVT CT lower extremity noting "Nonspecific cutaneous thickening of the lower leg with moderate subcutaneous edema. Differential considerations include cellulitis, venous stasis or lymphedema." Continue IV Daptomycin Started on amlactin Wound nurse consult Continue to monitor Acute on Chronic hyponatremia Na 130 on admission, downtrended to 127 on 03/26/24 Held home HCTZ, d/c on discharge nephrology consulted, appreciate recs Continue to monitor Improving Lower extremity edema Patient with significant lower extremity edema Nephrology increasing dose of IV Lasix to 40 mg every 8 hours Advises will need discharge with p.o. loop diuretic Continue to monitor Shingles Continue Valtrex treatment Wheezing patient with noted wheezing on exam Chest x-ray on admission unremarkable No increased oxygen requirement at this time Mucinex ordered DuoNebs scheduled at this time other supportive measures Continue to monitor Repeat chest imaging pending on 03/28/24 Hypertensive urgency BP elevated on admission Continue lisinopril 40mg daily Continue metoprolol succinate 25mg daily Continue to monitor Hx of atrial fibrillation Continue Toprol and Eliquis DMII Continue ISS hgba1c of 5.9 Continue other home meds as ordered Diet: DMII, HH DVT prophylaxis: On Eliquis 5mg BID Dispo:PT/OT ordered for further recs, pt from a boarding house Admission and Anticipated Discharge Date Admission Date: March 24, 2024 Subjective patient was seen laying in bed States he felt like his legs were the same states he is still urinating quite a bit Review of Systems Review of Systems: All systems reviewed & are unremarkable except as noted in Subjective Physical Exam Physical Exam: General: Alert, oriented. No acute distress Skin: No noted rashes or bruises Psych: Appropriate mood and affect HEENT: NC/AT Chest: Nontender to palpation. CV: RRR Resp: Breath sounds clear bilaterally, no increased effort of breathing. Abdomen: soft, nontender, nondistended. No guarding. No organomegaly appreciated. Extremities: edema and erythema to lower extremities bilaterally, R>L Results & Data Results & Data Vital Signs (Past 12 Hours) Vital Signs Temp Pulse Pulse Pulse Resp BP BP 03/28/24 09:04 03/28/24 08:59 66 03/28/24 07:40 67 18 03/28/24 07:20 36.5 C 67 18 144/84 H 03/28/24 03:04 36.6 C 71 18 148/73 H 03/28/24 01:44 68 18 Pulse Ox O2 Del Method 03/28/24 09:04 Room Air 03/28/24 08:59 03/28/24 07:40 93 Room Air 03/28/24 07:20 94 Room Air 03/28/24 03:04 92 Room Air 03/28/24 01:44 92 Room Air
--- NOTE | 2024-03-28 14:04 | XRay Report ---
XR chest 1V portable HISTORY: 59 years-old Male wheezing, congestion COMPARISON: 03/23/2024 TECHNIQUE: AP view of the chest FINDINGS: Heart size is borderline enlarged. Electronic device is again seen projected over the left heart bord er. No pneumothorax, pleural effusion or airspace consolidation. Chronic appearing lateral left rib f ractures. IMPRESSION: No acute process of the chest. ACT 112: Negative or not required by law. The above report was generated using voice recognition software. It may contain grammatical, syntax o r spelling errors. Electronically signed by: Behzad Carl M.D. 03/28/2024 2:02 PM
--- NOTE | 2024-03-28 17:16 | Nephrology Progress Note ---
Date of Service March 28, 2024 Assessment & Plan (1) Hyponatremia: Plan: he has had Somewhat low na but was on HCTZ so have to assume that would be the cause. urine tests still affected by HCTZ so cannot totally rely on that. On exam he has a lot of edema. on lasix 20 but we need to try a much higher dose to see if it makes any difference. renal function normal. Not sure he actually was taking HCTZ pre admission--he is hard to understand !! sodium improved 130 > 135 today; K 4.6 >changed IV lasix 40 mg q8h to torsemide 40 mg daily -continue KCL 20 bid. He can never be on HCTZ or other thiazides. He will be discharged on loop diuretics will sign off NEPHRO D/C RECS -pls add hctz to allergy/med intolerance list -d/c on torsemide 20 mg daily and 10 mEq K bid -continue FR 1.8L at hospital d/c -encourage protein shakes which do NOT count toward fluid limit -daily bmp while in hospital -check bmp in one week at PCP f/u visit -suggest nephro hospital d/c appt 2-3 wks after d/c w/ Dr Sethi 40 minutes with neph nurse to order bmp, urine osms, serum osms, rd urine electrolytes, UACM, protein/creatinine ratio to be done no more than 72 hrs before neph appt (2) Cellulitis: Plan: on Abx --Daptomicin currently. Admission and Anticipated Discharge Date Admission Date: March 24, 2024 Subjective feels his edema is improving; no sob; admits to marked thirst; had boost first time today and did ok Review of Systems 2 Review of Systems: All systems reviewed & are unremarkable except as noted in Subjective Physical Exam 2 Constitutional: well developed, + obese, + behavioral limitations and cooperative; no acute distress Eyes: EOM intact bilaterally ENMT: Mouth: oral mucous membranes not dry Respiratory: normal respiratory effort; no respiratory distress A uscultation: + diminished lung sounds and + wheezes (diffuse expiratory) Cardiovascular: Rate/Rhythm: regular rate and regular rhythm Extremities: + edema (trace BLE) Gastrointestinal (Abdomen): Inspection/Auscultation: normal bowel sounds P ercussion/Palpation: abdomen soft; abdomen nontender Musculoskeletal: Extremities: strength 5/5 throughout Neurologic: hoang, fluent speech, no tremor Results & Data Vital Signs (Past 12 Hours) Vital Signs Temp Pulse Pulse Pulse Resp BP BP 03/28/24 15:42 36.6 C 60 18 145/88 H 03/28/24 13:59 78 03/28/24 12:42 72 16 03/28/24 11:32 36.6 C 66 18 116/72 03/28/24 09:04 03/28/24 08:59 66 03/28/24 07:40 67 18 03/28/24 07:20 36.5 C 67 18 144/84 H Pulse Ox O2 Del Method 03/28/24 15:42 93 Room Air 03/28/24 13:59 03/28/24 12:42 93 Room Air 03/28/24 11:32 93 Room Air 03/28/24 09:04 Room Air 03/28/24 08:59 03/28/24 07:40 93 Room Air 03/28/24 07:20 94 Room Air Laboratory Results 03/28/24 06:50 03/28/24 06:50
[2024-03-28] MEDS: guaiFENesin 600 MG TABCR PO SCH (21:27)
[2024-03-28] MEDS: POTASSIUM CHLORIDE 20 MEQ/15 ML UDC PO SCH (21:28)
[2024-03-29] MEDS: TORSEMIDE 20 MG TAB PO SCH (07:17)
[2024-03-29 08:37] LABS: Basophils # (auto) 0.04 K/uL (0.00-0.20); Basophils % (auto) 0.7 %; Eosinophils % (auto) 1.8 %; Hematocrit (blood only) 39.8 % (42.0-52.0); Hemoglobin 13.9 g/dl (14.0-18.0); Immature Granulocytes # (auto) 0.02 K/uL (0.01-0.20); Immature Granulocytes % (auto) 0.4 %; Lymphocytes # (auto) 1.34 K/uL (1.20-3.40); Lymphocytes % (auto) 23.6 %; Mean Corpuscular Hemoglobin 33.3 pg (25.0-34.0); Mean Corpuscular Hgb Conc 34.9 g/dL (32.0-36.0); Mean Corpuscular Volume 95.2 fL (80.0-100.0); Mean Platelet Volume 9.2 fL (9.4-12.4); Monocytes # (auto) 0.55 K/uL (0.11-0.59); Monocytes % (auto) 9.7 %; Neutrophils # (auto) 3.63 K/uL (1.40-6.50); Neutrophils % (auto) 63.8 %; Platelet Count 245 K/uL (130-400); RDW Coefficient of Variation 14.2 % (11.5-14.5); RDW Standard Deviation 49.3 fL (36.4-46.3); Red Blood Count 4.18 M/uL (4.70-6.10); White Blood Count 5.68 K/ul (4.8-10.8)
[2024-03-29 08:55] LABS: Albumin Globulin Ratio 1.1 (0.9-2); Albumin Level 3.5 gm/dl (3.4-5.0); BUN Creatinine Ratio 30.1 (10-20); Bilirubin,Total 0.4 mg/dl (0.2-1.0); Calcium 9.6 mg/dl (8.6-10.3); Creatinine Clr Calc Pharmacy 139.5 ml/min; Globulin 3.3 gm/dl (2.5-4.0); Total Protein 6.8 gm/dl (6.0-8.3)
--- NOTE | 2024-03-29 11:54 | Hospitalist Progress Note ---
Date of Service March 29, 2024 Assessment & Plan (1) Cellulitis: Plan Pt is a 59yoM with PMHx significant for A-fib on Eliquis, CVA, hypertension, hyperlipidemia, COPD, DM2 on oral medications, hyperprolactinemia as per records chronic hyponatremia, hemochromatosis as per records, chronic anemia (baseline hemoglobin 12-13), seizure disorder, history of traumatic brain injury, mood disorder, paranoid schizophrenia/schizoaffective disorder, BPH presenting with right lower extremity cellulitis. RLE Cellulitis Pt presenting with erythema and swelling of lower extremities R>L Venous doppler noting "Right calf subcutaneous edema with slightly echogenic fat suggesting of early cellulitis." but no DVT CT lower extremity noting "Nonspecific cutaneous thickening of the lower leg with moderate subcutaneous edema. Differential considerations include cellulitis, venous stasis or lymphedema." Continue IV Daptomycin--> switched to po doxycycline on 03/29 Started on amlactin Wound nurse consult Continue to monitor Acute on Chronic hyponatremia Na 130 on admission, downtrended to 127 on 03/26/24 Held home HCTZ, d/c on discharge nephrology consulted, appreciate recs Continue to monitor Improving Lower extremity edema Patient with significant lower extremity edema Nephrology increasing dose of IV Lasix to 40 mg every 8 hours Advises will need discharge with p.o. loop diuretic Continue to monitor Shingles Continue Valtrex treatment Wheezing patient with noted wheezing on exam Chest x-ray on admission unremarkable No increased oxygen requirement at this time Mucinex ordered DuoNebs scheduled at this time other supportive measures Continue to monitor Repeat chest imaging pending on 03/28/24 Hypertensive urgency BP elevated on admission Continue lisinopril 40mg daily Continue metoprolol succinate 25mg daily Continue to monitor Hx of atrial fibrillation Continue Toprol and Eliquis DMII Continue ISS hgba1c of 5.9 Continue other home meds as ordered Diet: DMII, HH DVT prophylaxis: On Eliquis 5mg BID Dispo:PT/OT ordered for further recs, pt from a boarding house Admission and Anticipated Discharge Date Admission Date: March 24, 2024 Subjective spoke with patient this morning sitting up in bed States that he feels like he cannot cough up his forearm Chest x-ray from yesterday unremarkable Denies any associated shortness of breath States his lower extremity swelling is improved Nephrology switched him to oral Lasix yesterday Agreed that his symptoms have been improving overall Review of Systems Review of Systems: All systems reviewed & are unremarkable except as noted in Subjective Physical Exam Physical Exam: General: Alert, oriented. No acute distress Skin: No noted rashes or bruises Psych: Appropriate mood and affect HEENT: NC/AT Chest: Nontender to palpation. CV: RRR Resp: Breath sounds clear bilaterally, no increased effort of breathing. Abdomen: soft, nontender, nondistended. No guarding. No organomegaly appreciated. Extremities: edema and erythema to lower extremities bilaterally, R>L Results & Data Results & Data Vital Signs (Past 12 Hours) Vital Signs Temp Pulse Pulse Pulse Resp BP Pulse Ox 03/29/24 08:05 36.5 C 71 18 129/79 94 03/29/24 07:50 03/29/24 07:08 75 16 93 03/29/24 06:46 66 03/29/24 03:30 36.4 C L 69 18 139/87 93 03/29/24 01:51 67 18 91 O2 Del Method 03/29/24 08:05 Room Air 03/29/24 07:50 Room Air 03/29/24 07:08 Room Air 03/29/24 06:46 03/29/24 03:30 Room Air 03/29/24 01:51 Room Air
[2024-03-29] MEDS: DOXYCYCLINE HYCLATE 100 MG CAP PO SCH (17:16)
[2024-03-30 08:43] LABS: Basophils # (auto) 0.06 K/uL (0.00-0.20); Basophils % (auto) 1.1 %; Eosinophils # (auto) 0.13 K/uL (0.00-0.50); Eosinophils % (auto) 2.4 %; Hematocrit (blood only) 39.7 % (42.0-52.0); Hemoglobin 13.6 g/dl (14.0-18.0); Immature Granulocytes # (auto) 0.03 K/uL (0.01-0.20); Immature Granulocytes % (auto) 0.5 %; Lymphocytes # (auto) 1.59 K/uL (1.20-3.40); Mean Corpuscular Hemoglobin 32.9 pg (25.0-34.0); Mean Corpuscular Hgb Conc 34.3 g/dL (32.0-36.0); Mean Corpuscular Volume 96.1 fL (80.0-100.0); Mean Platelet Volume 9.3 fL (9.4-12.4); Monocytes # (auto) 0.61 K/uL (0.11-0.59); Monocytes % (auto) 11.1 %; Neutrophils # (auto) 3.06 K/uL (1.40-6.50); Neutrophils % (auto) 55.9 %; Platelet Count 247 K/uL (130-400); RDW Coefficient of Variation 14.4 % (11.5-14.5); RDW Standard Deviation 49.6 fL (36.4-46.3); Red Blood Count 4.13 M/uL (4.70-6.10); White Blood Count 5.48 K/ul (4.8-10.8)
[2024-03-30 08:56] LABS: Albumin Globulin Ratio 0.9 (0.9-2); Albumin Level 3.5 gm/dl (3.4-5.0); BUN Creatinine Ratio 33.7 (10-20); Bilirubin,Total 0.5 mg/dl (0.2-1.0); Calcium 9.5 mg/dl (8.6-10.3); Creatinine Clr Calc Pharmacy 134.7 ml/min; Globulin 3.7 gm/dl (2.5-4.0); Potassium 4.5 mmol/L (3.5-5.1); Total Protein 7.2 gm/dl (6.0-8.3)
[2024-03-30 11:48] VITALS: TEMP 97.7
--- NOTE | 2024-03-30 12:58 | Discharge Summary ---
Discharge Summary Date of Service March 30, 2024 Principal Dx & Hospital Course #1 = Principal Diagnosis (1) Cellulitis: Plan Pt is a 59yoM with PMHx significant for A-fib on Eliquis, CVA, hypertension, hyperlipidemia, COPD, DM2 on oral medications, hyperprolactinemia as per records chronic hyponatremia, hemochromatosis as per records, chronic anemia (baseline hemoglobin 12-13), seizure disorder, history of traumatic brain injury, mood disorder, paranoid schizophrenia/schizoaffective disorder, BPH presenting with right lower extremity cellulitis. RLE Cellulitis Pt presenting with erythema and swelling of lower extremities R>L Venous doppler noting "Right calf subcutaneous edema with slightly echogenic fat suggesting of early cellulitis." but no DVT CT lower extremity noting "Nonspecific cutaneous thickening of the lower leg with moderate subcutaneous edema. Differential considerations include cellulitis, venous stasis or lymphedema." Treated with IV Daptomycin--> switched to po doxycycline on 03/29 and discharged with 1 more day to complete a 7 day course of treatment WAs started on a diuretic by Nephrology for the swelling (see below), discharged with torsemide 20mg daily with KCl supplement. Started on amlactin Wound nurse was consulted PCP follow up after discharge Consider Dermatology evaluation for noted skin scaling and flaking. Acute on Chronic hyponatremia Na 130 on admission, downtrended to 127 on 03/26/24 Held home HCTZ, discontinued on discharge nephrology consulted, appreciate recs Per nephrology on day of discharge: "pls add hctz to allergy/med intolerance list -d/c on torsemide 20 mg daily and 10 mEq K bid -continue FR 1.8L at hospital d/c -encourage protein shakes which do NOT count toward fluid limit -daily bmp while in hospital -check bmp in one week at PCP f/u visit [facility] appt 2-3 wks after d/c w/ Dr Sethi 40 minutes with neph nurse to order bmp, urine osms, serum osms, rd urine electrolytes, UACM, protein/creatinine ratio to be done no more than 72 hrs before neph appt" PCP and nephrology follow up after discharge. Lower extremity edema Patient with significant lower extremity edema Nephrology increasing dose of IV Lasix to 40 mg every 8 hours Advises will need discharge with p.o. loop diuretic Patient discharged with torsemide 20 mg with potassium chloride supplement 10 mill equivalents twice daily PCP follow-up for continued volume status monitoring Shingles Valtrex treatment, discontinued on discharge Wheezing patient with noted wheezing on exam Chest x-ray on admission unremarkable, repeat also unremarkable No increased oxygen requirement at this time Mucinex ordered DuoNebs other supportive measures patient discharged with continued Mucinex and albuterol inhaler for as needed use for wheezing or shortness of breath PCP follow-up on discharge Hypertensive urgency BP elevated on admission Continue lisinopril 40mg daily Continue metoprolol succinate 25mg daily normotensive on discharge, PCP follow-up Hx of atrial fibrillation Continue Toprol and Eliquis PCP follow-up DMII Continue ISS hgba1c of 5.9 PCP follow-up Continue other home meds as ordered Notes For Next Care Provider Nephrology Discharge Recommendations: "pls add hctz to allergy/med intolerance list -d/c on torsemide 20 mg daily and 10 mEq K bid -continue FR 1.8L at hospital d/c -encourage protein shakes which do NOT count toward fluid limit -daily bmp while in hospital -check bmp in one week at PCP f/u visit -suggest nephro hospital d/c appt 2-3 wks after d/c w/ Dr Sethi 40 minutes with neph nurse to order bmp, urine osms, serum osms, rd urine electrolytes, UACM, protein/creatinine ratio to be done no more than 72 hrs before neph appt" Consider dermatology follow-up for lower extremities Medication Changes From Visit doxycycline 100 mg twice daily for 1 more day Albuterol inhaler every 6 hours as needed Mucinex 1200 mg twice daily Per nephrology: Torsemide 20 mg daily with KCl 10 mill equivalents twice a day. DISCONTINUE home hydrochlorothiazide Admission HPI Per Admitting Provider History obtained from patient and records. Medical history significant for A-fib on Eliquis, CVA, hypertension, hyperlipidemia, COPD, DM2 on oral medications, hyperprolactinemia as per records chronic hyponatremia, hemochromatosis as per records, chronic anemia (baseline hemoglobin 12-13), seizure disorder, history of traumatic brain injury, mood disorder, paranoid schizophrenia/schizoaffective disorder, BPH, ongoing tobacco abuse. Recent confinement 2 weeks ago for herpes zoster dermatitis presenting as RLE swelling with clear yellow fluid drainage. Concern for possible herpes zoster with secondary bacterial infection. Wound CS grew Staphylococcus. Patient discharged on Bactrim and Valtrex course. Initial improvement of swelling following discharge. Last couple of days, patient noted severe worsening of RLE swelling. No chest pain or unusual shortness of breath. Chronic cough symptoms productive of white sputum. Patient seen at PCPs office yesterday. Patient subsequently directed to ER. Vancomycin and ceftriaxone administered at the ER. Medical History as above Surgical History : Tonsillectomy, hydrocele repair, foot nerve decompression, nasal cyst removal Family History : Mood disorder, DM, TIA Personal/Social history : 1 pack daily, no EtOH intake, businessman Admission Exam Per Admitting Provider GENERAL: Comfortable, obese, dysarthric (chronic), no respiratory distress SKIN: Pallor , warm HEENT: Partial alopecia, pale palpebral conjunctivae, no ptosis, dry buccal mucosa NECK : Supple, short neck, no tenderness CHEST : Decreased breath sounds, scattered expiratory wheezes, no tenderness HEART : RRR, no obvious murmurs ABDOMEN: Some distention, nontender EXTREMITIES : Tender RLE induration with crusted lesions, no other conspicuous deformities noted NEUROLOGIC : Coherent, no facial asymmetry, chronic dysarthria, no other gross focality Discharge Exam General: Alert, oriented. No acute distress Skin: No noted rashes or bruises Psych: Appropriate mood and affect HEENT: NC/AT Chest: Nontender to palpation. CV: RRR Resp: Breath sounds clear bilaterally, no increased effort of breathing. Abdomen: soft, nontender, nondistended. No guarding. No organomegaly appreciated. Extremities: significantly improved edema and erythema to lower extremities bilaterally, R>L Updated Medication List Medication Instructions Recorded Confirmed Type apixaban 5 mg tablet (Eliquis) 5 mg PO BID 03/13/24 03/24/24 History atorvastatin 40 mg tablet 40 mg PO DAILY 03/13/24 03/24/24 History carbamazepine 200 mg tablet 250 mg PO TID 03/13/24 03/24/24 History clonidine HCl 0.1 mg tablet 0.1 mg PO TID 03/13/24 03/24/24 History divalproex 250 mg tablet,delayed 750 mg PO BID 03/13/24 03/24/24 History release hydrochlorothiazide 12.5 mg tablet 12.5 mg PO DAILY 03/13/24 03/24/24 History hydroxyzine HCl 50 mg tablet 50 mg PO QID PRN Anxiety 03/13/24 03/24/24 History lisinopril 40 mg tablet 40 mg PO DAILY 03/13/24 03/24/24 History metoprolol succinate 25 mg 25 mg PO DAILY 03/13/24 03/24/24 History tablet,extended release 24 hr paliperidone palmitate 234 mg/1.5 234 mg IM Q4WK 03/13/24 03/24/24 History mL intramuscular syringe (Invega Sustenna) quetiapine 100 mg tablet (Seroquel) 100 mg PO Q6H PRN Agitation 03/13/24 03/24/24 History risankizumab-rzaa 150 mg/mL 150 mg subcut UD 03/13/24 03/24/24 History subcutaneous syringe (Skyrizi) trazodone 150 mg tablet 75 mg PO HS 03/13/24 03/24/24 History triamcinolone acetonide 0.1 % 1 applic topical 2XD 03/13/24 03/24/24 History topical cream sulfamethoxazole 800 1 tab PO BID 03/24/24 03/24/24 History mg-trimethoprim 160 mg tablet (Bactrim DS) valacyclovir 500 mg tablet 1,000 mg PO 3XD 03/24/24 03/24/24 History albuterol sulfate 90 mcg/actuation 1 inh inhalation Q6H PRN shortness 03/30/24 Rx aerosol inhaler of breath or wheezing #6.7 grams doxycycline hyclate 100 mg capsule 100 mg PO BID #2 caps 03/30/24 Rx guaifenesin 600 mg tablet, 1,200 mg (2 x 600 mg) PO Q12 #60 03/30/24 Rx extended release 12 hr (Mucinex) tabs potassium chloride 10 mEq 10 meq PO BID #60 tabs 03/30/24 Rx tablet,extended release torsemide 20 mg tablet 20 mg PO QAM #30 tabs 03/30/24 Rx Hospital Stay Data Consultations 03/24/24 01:02 ED Decision to Admit Stat 03/26/24 08:17 Consult Nephrology Routine Diagnostic Imagining Performed 03/23/24 21:52 CT angio chest PE protocol Stat 03/24/24 US venous doppler LE BI Stat Chest CTA 03/23/24 21:52 EXAM: CT angio chest PE protocol CLINICAL HISTORY: EMS reports that pt was seen discharged today from hospital ([facility]) for right leg pain and cellulitis. EMS reports pt had increased leg pain when calling the ambulance later today and on the way here reported some "chest pressure" but then pointed to his lower abdomen. pt is denying chest pressure at this moment. pt has no cardiac hx 94 ml opti 320 PW TECHNIQUE: Contiguous axial images were obtained from the neck base through the upper abdomen following intravenous administration of iodinated contrast material. Angiographic images were processed, 3D MIP images were acquired for interpretation. If IV contrast material had not been administered, the likelihood of detecting abnormalities relevant to the patient's condition would have been substantially decreased. Coronal and sagittal 3-D MIPs were likewise performed and indicated to increase the sensitivity of detecting diffuse clinically relevant pathology. CT scan was performed according to ALARA (as low as reasonably achievable). COMPARISON: None. FINDINGS: Adequate contrast bolus without evidence of pulmonary embolism. 14 x 9 mm nodule is noted in the posterior basal segment of the right lower lobe. Positional ground glass densities with subtle interstitial thickening are seen involving the dependent portions of bilateral lower lobes. Few patchy areas of ground-glass densities with interstitial thickening also noted involving anterior segments of bilateral upper lobes, more on left side No pleural effusion. No pericardial effusion is identified. The central airways are patent. Cardiomegaly seen. There are no appreciable coronary artery and aortic atherosclerotic calcifications. No mediastinal, hilar, or axillary lymphadenopathy is noted. The visualized portion of the thyroid is unremarkable. No suspicious lytic or sclerotic osseous lesions are identified. Degenerative changes are noted in the visualized spine. Old fractures of left 6th 7th and 8th ribs is noted. IMPRESSION: 1. No evidence of pulmonary embolism. 2. 14 x 9 mm nodule is noted in the posterior basal segment of the right lower lobe. No suspicious features of malignancy in the current study. Correlation with prior scan / follow up is advised as per Fleischner guidelines. 3. Cardiomegaly. 4. Positional ground glass densities with subtle interstitial thickening are seen involving the dependent portions of bilateral lower lobes. 5. Few patchy areas of ground-glass densities with interstitial thickening also noted involving anterior segments of bilateral upper lobes, more on left side. Non-specific vs infective. Suggested clinical/lab correlation. Electronically signed by Ebenezer Rodriguez 03-24-2024 12:57 AM Chest X-Ray 03/23/24 21:52 Exam(s): XR CXR 1 VIEW EXAM: XR Chest, 1 View CLINICAL HISTORY: Reason for exam: Chest pain, nonspecific. TECHNIQUE: Frontal view of the chest. COMPARISON: 03/13/24 FINDINGS: Lungs: Unremarkable. No consolidation. Pleural space: Unremarkable. No pleural effusion or pneumothorax. Heart: Stable heart size. Bones/joints: No acute fracture. No dislocation. Tubes, lines and devices: Loop recorder projects over the left chest. IMPRESSION: No acute findings in the chest. Electronically signed by: Krzysztof Washington M.D. 03/23/24 23:31 PM Venous Doppler Study 03/24/24 00:00 EXAM: US venous doppler LE BI CLINICAL HISTORY: Swelling, ? DVT B/L groin nodes seen: lgst on RT = 4.1 x 1.7 x 1.1 cm, lgst on LT = 3.0 x 1.4 x 0.7 cm. Difficult vis of calf vessels B/L due to edema. No definite RLE or LLE DVT detected. TECHNIQUE: Ultrasound examination of bilateral lower extremity veins was performed in real time and duplex. One or more of the following were performed- spectral analysis, resistive index, waveform analysis, and pulsed Doppler. COMPARISON: comparison with previous study dated 03/13/2024 FINDINGS: Right calf subcutaneous edema with echogenic fat which may suggest early cellulitis. Normal phasic, non-pulsatile and spontaneous flow is noted in the bilateral common femoral, bilateral superficial femoral, and bilateral popliteal. Visualized veins of both lower extremities demonstrate normal compressibility. No sonographic evidence of acute deep vein thrombosis (DVT) is detected in the rest of the visualized veins of both lower extremities. Compression and Augmentation: The evaluated veins compress fully with applied transducer pressure. Augmentation of venous flow is noted with distal compression. Additional Findings: Bilateral enlarged inguinal LNs largest on the right side measures 4 x 1.7 x1.4 cm and on the left side measures 3 x 1.4 x 0.7 cm. IMPRESSION: 1. Right calf subcutaneous edema with slightly echogenic fat suggesting of early cellulitis. 2. Enlarged inguinal LNs as described. 3. No DVT detected. Disclaimer: DVT could be missed early in the disease when clot burden is minimal. For patients with moderate and high pretest probability of DVT and negative ultrasound, the [employer] clinical guidelines recommend testing with a D-dimer assay or repeat ultrasound in 5-7 days. If symptoms worsen, the Society of radiologists in ultrasound recommends repeating ultrasound even earlier. Electronically signed by Benji Zabala 03-24-2024 03:22 AM Chest X-Ray 03/28/24 13:41 XR chest 1V portable HISTORY: 59 years-old Male wheezing, congestion COMPARISON: 03/23/2024 TECHNIQUE: AP view of the chest FINDINGS: Heart size is borderline enlarged. Electronic device is again seen projected over the left heart border. No pneumothorax, pleural effusion or airspace consolidation. Chronic appearing lateral left rib fractures. IMPRESSION: No acute process of the chest. ACT 112: Negative or not required by law. The above report was generated using voice recognition software. It may contain grammatical, syntax or spelling errors. Electronically signed by: Behzad Carl M.D. 03/28/2024 2:02 PM Pending Results Patient Have Any Pending Studies at Discharge: No Discharge Instructions Given to Patient (Per Discharging Provider) Rajiv, You were admitted and treated for swelling in your lower extremities as well as concern for redness. Please continue with 1 more day of doxycycline as well as your new prescription for torsemide 20 mg daily that was prescribed by nephrology. Nephrology also wanted you to take potassium supplements twice a day. Per nephrology, stop taking your home hydrochlorothiazide. Please continue with the Mucinex to help with your cough and congestion. also prescribed you an inhaler to help with your shortness of breath or wheezing as needed. Please stop taking the antibiotic Bactrim and the medication Valtrex that you have at home. Please keep close follow up with your primary care provider after discharge. Please do not hesitate to come back to the emergency room if your symptoms worsen or return. It was a pleasure taking care of you while you were here. Total Time Total Time Spent Total Time Spent (In Minutes): 65
[2024-03-30 13:34] VITALS: RESP 20; O2SAT 96
[2024-03-30 14:07] VITALS: BP 157/97; PULSE 62
== END 2024-03-30 14:21 | disposition home health service (06) | DRG 603 ==
LOC: ED 21:48 → EDINP 03-24 01:46 → SUATTDRO 03-24 01:46 → 2W 03-24 02:48